=== PATIENT | female | born 1955 | race Caucasian/White ===

== ENCOUNTER 2020-07-02 05:18 | Inpatient (IN) | payer MEDICARE, SELFPAY ==
[2020-07-02] VITALS (67 sets, daily range): BP systolic 97–133; BP diastolic 51–105; PULSE 67–135; RESP 17–41; TEMP 36.1–36.3; O2SAT 77–100; BMI 13.6
--- NOTE | ~2020-07-02 | CT_ITS ---
EXAMINATION: CTA chest PE protocol EXAM DATE: 07/02/2020 07:56 INDICATION: Shortness of breath. Right-sided pneumothorax. TECHNIQUE: Spiral CTA of the chest (pulmonary arteries) was performed with 100 cc Omnipaque 350 intr avenous contrast injection. Images were acquired during the pulmonary arterial phase. Coronal maxi mum intensity projection 3D-reconstructions were created by the technologist on dedicated workstation . Axial, coronal and sagittal reformatted images were reviewed. The dose-length product (DLP) for t his examination was 152.46 mGy-cm. The exposure was tailored according to patient size (auto mA exp osure control), and iterative reconstruction (ASIR) was used as additional dose reduction technique. Comparison is made to prior examination from 11/22/2017. FINDINGS: Pulmonary arteries are well opacified and without intraluminal filling defects. No ascen ding thoracic aortic dissection. Aortic arch, descending thoracic aorta is not opacified at time of i maging. There is a small to moderate-sized right-sided pneumothorax. There is severe chronic hyperinflation a nd emphysema. There is right basilar and medial bullous disease. Right upper lobe scarring is unchang ed as well as several other nodular opacities. There are regions of bronchiectasis. No evidence of ac [place] airspace disease. There are no pleural or pericardial effusions. Tracheobronchial tree is paten t. There is no mediastinal, hilar or axillary lymphadenopathy. Narrow cardiac silhouette from the hyperinflated lungs. There is mild coronary arterial calcification, arterial sclerosis. Upper abdo men is unremarkable. There is thoracic spondylosis without osteoblastic or osteolytic lesions ident ified. IMPRESSION: 1. Small to moderate-sized right-sided pneumothorax. 2. No pulmonary emboli or acute airspace disease. 3. Severe emphysema and hyperinflation. Bronchiectasis. 4. Apical predominant scarring. Finding of right pneumothorax was already verbally conveyed to Dr. Garcia as per documentation on [facility] t x-ray report. Reviewed, dictated and finalized at location B. WEB DEVELOPER IMPRESSION: 1. Small to moderate-sized right-sided pneumothorax. 2. No pulmonary emboli or acute airspace disease. 3. Severe emphysema and hyperinflation. Bronchiectasis. 4. Apical predominant scarring. Finding of right pneumothorax was already verbally conveyed to Dr. Garcia as per documentation on chest x-ray report.
--- NOTE | ~2020-07-02 | XR_ITS ---
EXAMINATION: XR chest 1V portable DATE: 07/04/2020 11:58 INDICATION: Right pneumothorax. TECHNIQUE: A single frontal view of the chest was obtained. COMPARISON: Chest single view 07/03/2020, chest CT 07/02/20 FINDINGS: The patient is rotated to her left. The lungs are hyperexpanded with lucencies, consistent with emphysema. There is scarring at the lung apices. There are airspace opacities at the lung bases. There are small pleural effusions. There is a small right pneumothorax. The heart size is normal. IMPRESSION: 1. Small right pneumothorax. 2. Small pleural effusions with worsening on the left. 3. Severe emphysema. 4. Scarring at the lung apices. Worsened airspace opacities at the lung bases, likely atelectasis and scarring. Reviewed, dictated and finalized at location A. ING COURT JUDGE
--- NOTE | ~2020-07-02 | XR_ITS ---
XR chest 1V portable DATE: 07/02/2020 05:53 INDICATION: Shortness of breath. Chest pressure. TECHNIQUE: Portable upright AP chest on July 02, 2020 at 0554 hours COMPARISON: 11/22/2017 CT chest abdomen pelvis 10/12/2017 two-view chest FINDINGS: Bullous emphysema is noted. There is bilateral apical scarring, right worse than left. There is approximately 25% right pneumothorax. No left pneumothorax. No pulmonary infiltrate or consolidation. Normal heart size. Aortic calcification. Diffuse osteopenia. IMPRESSION: Right pneumothorax COPD; bilateral apical scarring Aortic atherosclerosis On July 02, [address] Maria telephoned the report to emergency room physician Dr. Julito webber. Reviewed, dictated and finalized at location A. L WORKER IMPRESSION: Right pneumothorax COPD; bilateral apical scarring Aortic atherosclerosis On July 02, [address] Maria telephoned the report to emergency r oom physician Dr. Garcia.
--- NOTE | ~2020-07-02 | XR_ITS ---
EXAMINATION: XR chest 1V portable DATE: 07/05/2020 05:44 INDICATION: Right pneumothorax. TECHNIQUE: A single frontal view of the chest was obtained on 2 radiographs. COMPARISON: Chest single view 07/04/2020 FINDINGS: The patient is rotated to her left. The lungs are hyperinflated with lucencies, consistent with emphysema. There is scarring at the lung apices. There are small pleural effusions. There is a s mall right apical pneumothorax. There are mild airspace opacities at the lung bases, likely atelectas is and scarring. The heart size is normal. IMPRESSION: 1. Small right apical pneumothorax. 2. Stable small pleural effusions. 3. Severe emphysema. 4. Scarring at the lung apices. Stable atelectasis and scarring at the lung bases. Reviewed, dictated and finalized at location A. ORM MAKER IMPRESSION: 1. Small right apical pneumothorax. 2. Stable small pleural effusions. 3. Severe emphysema. 4. Scarring at the lung apices. Stable atelectasis and scarring at the lung bas es.
--- NOTE | ~2020-07-02 | XR_ITS ---
EXAMINATION: XR chest-chest tube insert/pos EXAM DATE: 07/02/2020 09:38 INDICATION: Chest tube insertion. TECHNIQUE: Portable AP frontal chest x-ray was obtained. Comparison is made to prior examination from 07/02/2020. FINDINGS: Interval insertion of right-sided chest tube with interval resolution of pneumothorax. Ther e is severe chronic hyperinflation. Biapical scarring. No evidence of acute airspace disease. There i s aortic arteriosclerosis. The bones are osteopenic. There are bony degenerative changes. IMPRESSION: 1. Resolution of pneumothorax following right-sided chest tube insertion. 2. Severe chronic hyperinflation. Reviewed, dictated and finalized at location B. STRAIGHTENER
--- NOTE | ~2020-07-02 | XR_ITS ---
XR chest 1V portable DATE: 07/03/2020 11:25 INDICATION: Chest tube clamped; patient started having shortness of breath. Recent right pneumothorax . TECHNIQUE: Portable upright AP chest on July 03, 2020 at 1116 hours COMPARISON: July 03, 2020 portable AP chest at 0521 hours FINDINGS: Right thoracostomy tube is again noted. No pneumothorax is evident following clamping. Bilateral hyperinflation and flattening the diaphragm consistent with COPD. Bilateral pulmonary scarr ing involving particularly the upper lungs. IMPRESSION: No evidence of pneumothorax following clamping of right chest tube Reviewed, dictated and finalized at location A. OLATE PACKER
--- NOTE | ~2020-07-02 | XR_ITS ---
EXAMINATION: XR chest 1V portable DATE: 07/06/2020 05:58 INDICATION: Right pneumothorax. TECHNIQUE: A single frontal view of the chest was obtained. COMPARISON: Chest single view 07/05/2020 FINDINGS: The patient is rotated to her left. The lungs are hyperexpanded with lucencies, consistent with emphysema. There is scarring at the lung apices. There are small pleural effusions. There is mil d atelectasis and scarring at the lung bases. There is no pneumothorax. The heart size is normal. IMPRESSION: 1. No pneumothorax. 2. Stable small pleural effusions. 3. Severe emphysema. 4. Scarring at the lung apices. Stable scarring and atelectasis at the lung bases. Reviewed, dictated and finalized at location A. STRIAL MAINTENANCE TECH IMPRESSION: 1. No pneumothorax. 2. Stable small pleural effusions. 3. Severe emphysema. 4. Scarring at the lung apices. Stable scarring and atelectasis at the lung bas es.
--- NOTE | ~2020-07-02 | XR_ITS ---
XR chest 1V portable 07/04/2020 18:33 Indication: Increased shortness of breath Procedure: AP portable chest Comparison: Comparison to multiple prior studies sequentially, with oldest reviewed study dated 09/2020. Findings: Bibasilar airspace disease. Small pleural effusions. Chronic apical scarring. No pneumothor ax. No acute osseous abnormality. Impression: 1: Bibasilar infiltrates may represent atelectasis/scarring or pneumonia. 2: Small pleural effusions. 3: Chronic upper lobe scarring. Reviewed, dictated and finalized at location A. TURBINE MECHANICAL ENGINEER Impression: 1: Bibasilar infiltrates may represent atelectasis/scarring or pneumonia. 2: Small pleural effusions. 3: Chronic upper lobe scarring.
--- NOTE | ~2020-07-02 | XR_ITS ---
EXAMINATION: XR chest 1V portable DATE: 07/03/2020 12:42 INDICATION: Right pneumothorax status post chest tube removal. TECHNIQUE: A single frontal view of the chest was obtained. COMPARISON: Chest single view at 11:12 AM, chest CT 07/02/20 FINDINGS: The lungs are hyperexpanded with lucencies and architectural distortion, consistent with se veronica emphysema. There is mild atelectasis in right lung. There is mild scarring at the lung apices. T here is a small right pleural effusion. No pneumothorax. The heart size is normal. IMPRESSION: 1. Small right pleural effusion. 2. Severe emphysema. Reviewed, dictated and finalized at location A. EGLASS LAY UP WORKER
--- NOTE | ~2020-07-02 | XR_ITS ---
XR chest 1V portable DATE: 07/03/2020 05:35 INDICATION: Right pneumothorax TECHNIQUE: Portable AP chest on July 03, 2020 at 0521 hours COMPARISON: July 02, 2020 portable AP chest at 0934 hours FINDINGS: Right thoracostomy tube is unchanged in position since July 02, 2020. No pneumothorax is noted. Severe chronic obstructive pulmonary disease. There is asymmetric increased density overlying right apical area which may be due to scarring, infil trate and/or pulmonary mass lesion. Consider PET/CT imaging as clinically appropriate. There is left apical scarring. Heart size is within normal range. There is aortic calcification. No pleural effusion or pulmonary va scular congestion is evident. Diffuse osteopenia. IMPRESSION: Right thoracostomy tube; no pneumothorax Asymmetric increased density in the right apical area which may be due to scarring, infiltrate and/or pulmonary mass lesion. Consider elective PET/CT imaging. Reviewed, dictated and finalized at location A. STAFF IMPRESSION: Right thoracostomy tube; no pneumothorax Asymmetric increased density in the right apical area which may be due to scarr ing, infiltrate and/or pulmonary mass lesion. Consider elective PET/CT imaging.
--- NOTE | 2020-07-02 05:31 | ECG_ITS ---
Measurements Intervals [place] Rate: 91 P: IN: 0 QRS: 120 QRSD: 122 T: 74 QT: 369 QTc: 454 Interpretive Statements ATRIAL FIBRILLATION INTRAVENTRICULAR CONDUCTION DELAY CANNOT RULE OUT SEPTAL INFARCT, AGE INDETERMINATE BASELINE ARTIFACT- I, II, III, AVF, V1-V3, V6 ABNORMAL ECG Electronically Signed On 07-02-2020 7:21:22 PROCUREMENT ANALYST by Elliot Bobby D.O.
[2020-07-02 05:55] LABS: Basophils Percent Auto 0.2 % (0.2-1.2); Eosinophils Percent Auto 0.3 % (0-4.4); Hematocrit 41.6 % (37.0-47.0); Hemoglobin 13.6 g/dL (12.0-15.0); Immature Granulocyte Absolute 0.04 K/mm3 (0.00-0.031); Immature Granulocyte Percent A 0.6 % (0-0.5); Lymphocytes Absolute Auto 0.81 K/mm3 (0.9-3.2); Lymphocytes Percent Auto 12.2 % (18.3-44.2); Mean Corpuscular HGB Conc 32.7 g/dl (32-36); Mean Corpuscular Hemoglobin 33.3 pg (26-34); Mean Corpuscular Volume 101.7 fl (80-100); Mean Platelet Volume 8.9 fl (7.4-10.4); Monocytes Absolute Auto 0.7 K/mm3 (0.1-0.6); Monocytes Percent Auto 10.4 % (2.6-8.5); Neutrophils Absolute Auto 5.1 K/mm3 (1.3-6.7); Neutrophils Percent Auto 76.3 % (45.5-73.1); Platelet Count Result 237 k/mm3 (150-375); Red Blood Count 4.09 M/mm3 (4.2-5.4); Red Cell Distribution Width 11.8 % (11.5-14.5); White Blood Count 6.6 K/mm3 (4.5-10.0)
[2020-07-02] MEDS: IPRATROPIUM BR 0.02% INH SOLN 0.5 MG/2.5 ML VIAL INHALATION ×3 (05:55→20:30)
[2020-07-02] MEDS: ALBUTEROL SULFATE NEB 2.5 MG/0.5 ML INH 5 MG INHALATION ×2 (05:55→06:45)
[2020-07-02 06:06] LABS: Anion Gap 5 mmol/L (8-16); Blood Urea Nitrogen 16 mg/dL (7-17); Calcium 9.1 mg/dL (8.4-10.2); Carbon Dioxide 30 mmol/L (22-30); Chloride 100 mmol/L (98-107); Estimated CRCL calculation 55 ml/min; Estimated Glomerular Filt Rate > 60; Glucose 135 mg/dL (65-105); Potassium 4.6 mmol/L (3.4-5.0); Sodium 135 mmol/L (137-145)
[2020-07-02 06:07] LABS: INR 0.9; Prothrombin Time 12.7 Seconds (11.1-14.7)
[2020-07-02 06:09] LABS: Partial Thromboplastin Time 32.1 SECONDS (22.3-36.8)
[2020-07-02 06:10] LABS: Base Excess ABG -2.7 mEq/l (+/-2.0); Carboxyhemoglobin 0.3 % THb (0-2.0); Device NON-REBREATHER MASK; Fractional Inspired Oxygen 90 %; HCO3 ABG 23.4 mEq/l (22.0-26.0); Methemoglobin ABG 0.3 %THb (0-1.5); Oxygen Content ABG 20.4 %vol (16.0-22.0); Oxygen Saturation ABG 99.5 % (95.0-100.0); Oxyhemoglobin 98.1 % THb (90.0-100.0); PCO2 ABG 45.1 mmHg (35.0-45.0); PO2 ABG 234.5 mmHg (80.0-100.0); PO2 FiO2 Ratio Arterial Blood 2.61 %; Reduced Hemoglobin 1.3 %THb (0-5.0); Site Drawn RIGHT BRACHIAL; Total Hemoglobin 14.4 g/dL (12.0-18.0); pH ABG 7.332 (7.350-7.450)
--- NOTE | 2020-07-02 06:11 | ED.SOB ---
HPI - SOB/Dyspnea General Chief Complaint: Shortness of Breath/Dyspnea Stated Complaint: sob Time Seen by Provider: 07/02/20 05:42 Source: patient Mode of arrival: ambulatory Limitations: no limitations History of Present Illness HPI Narrative: Patient is a 64-year-old female complaining of shortness of breath, started 3 days ago worse this morning. Patient states she has a history of COPD. Per EMS her oxygen saturation room air was 80%, she does not use home oxygen. Patient was given Decadron and magnesium and a neb treatment per EMS prior to arrival. Patient also complaining of chest tightness. Patient denies any abdominal pain, nausea, vomiting, fever or chills. Related Data Allergies Allergy/AdvReac Type Severity Reaction Status Date / Time No Known Allergies Allergy Verified 07/11/12 11:09 Review of Systems Review of Systems: All systems reviewed & are unremarkable except as noted in HPI and below Constitutional: Constitutional: Denies body ache(s), Denies chills, Denies excessive sweating, Denies fatigue, Denies fever(s), Denies headache(s), Denies lethargy, Denies malaise, Denies weakness and Denies weight loss Eyes: Eyes: Denies blurry vision, Denies change in vision and Denies loss of vision ENT: Denies dizziness, Denies ear discharge, Denies headache(s), Denies lip swelling, Denies epistaxis, Denies nasal congestion, Denies neck pain, Denies throat swelling and Denies tongue swelling Cardiovascular: Cardiovascular: Denies chest pain, Denies chest pain at rest, Denies chest pain with activity, Denies diaphoresis, Denies rapid heart rate, Denies edema, Denies irregular heart rhythm, Denies lightheadedness, Denies palpitations, Denies dyspnea and Denies dyspnea on exertion Respiratory: Respiratory: Denies chest congestion and Denies hemoptysis Gastrointestinal: Gastrointestinal: Denies abdominal pain, Denies melena, Denies hematochezia, Denies diarrhea, Denies nausea, Denies vomiting and Denies hematemesis Musculoskeletal: Musculoskeletal: Denies abnormal gait, Denies deformity, Denies joint swelling, Denies limited range of motion, Denies neck pain and Denies numbness Neurologic: Denies Abnormal speech present, Denies abnormal gait, Denies confusion, Denies dizziness, Denies headache(s), Denies focal weakness, Denies loss of vision, Denies numbness, Denies Other visual disturbances, Denies Sensory deficit (Neuro) and Denies weakness Psychiatric: Psychiatric: Denies confusion, Denies depression, Denies auditory hallucinations, Denies homicidal ideation and Denies suicidal ideation Endocrine: Endocrine: Denies cold intolerance, Denies excessive sweating, Denies fatigue, Denies heat intolerance and Denies palpitations Hematologic/Lymphatic: Hematologic/Lymphatic: Denies easy bleeding and Denies easy bruising Allergic/Immunologic: Allergic/Immunologic: Denies lip swelling, Denies throat swelling and Denies tongue swelling PMFSH Family History Family History Other Diabetes mellitus Family history of Alzheimer's disease Family history of cardiovascular disease Family history of kidney disease Social History Social History Smoking status: Never smoker Second hand tobacco smoke exposure: Yes Smoking end date: 05/29/12 Alcohol intake: never Exam Const: General: no acute distress (Severe distress) Orientation/consciousness: oriented to person, oriented to place, oriented to time, patient oriented x3 and No confusion Limitations: no limitations HENMT: Head: normal to inspection, normocephalic and atraumatic Ears: hearing grossly normal bilaterally, TM normal on the right and TM normal on the left General nose exam: Normal external nose present, Normal nares present and No nasal discharge present Face and sinus: normal facial exam Mouth: Yes Normal oral and palatal mucosa present, Yes lip normal, Ye
--- NOTE | 2020-07-02 06:34 | PC.NURSE ---
Patient reports she woke up and noticed the nebulizer treatment was not connected to her mask. Patient believes no medication was administered and still has an increased work of breathing. JOSÉ MIGUEL Hernadez notified. Per JOSÉ MIGUEL Hernadez via verbal order read-back, order another nebulizer treatment.
[2020-07-02 06:43] LABS: D Dimer 0.81 ug/mL (<0.48)
--- NOTE | 2020-07-02 07:22 | PC.NURSE ---
Assumed pt care at this time from RN Song, pt on Bipap, tolerating well, VSS, NAD noted, will continue to monitor.
--- NOTE | 2020-07-02 07:24 | PC.NURSE ---
Per respiratory pt to go down to CT on 5L via NC.
--- NOTE | 2020-07-02 07:26 | PC.NURSE ---
Verbal order from BRYCE barrett to repeat ABG, if abg is improved pt to be removed from Bipap and placed on non-rebreather.
--- NOTE | 2020-07-02 07:30 | PC.NURSE ---
Pt to CT on monitor and 5L via NC at this time.
--- NOTE | 2020-07-02 08:04 | PC.NURSE ---
Pt informed consent signed for Right sided chest tube insertion, all resources at bedside, pt on 5L via NC, resting on stretcher, VSS.
--- NOTE | 2020-07-02 08:17 | PC.NURSE ---
Spoke with BRYCE Garcia about pt pain control for chest tube insertion, verbal order given for 2mg morphine and 4mg zofran ivp stat, bryce states that if pt tolerates 1st dose of morphine, she can have 2nd dose of 2mg morphine ivp
[2020-07-02] MEDS: MORPHINE SULFATE (*CRX) 2 MG/ML INJ IV PUSH ×2 (08:41→09:18)
[2020-07-02] MEDS: ONDANSETRON INJ 4 MG/2 ML VIAL (08:41)
--- NOTE | 2020-07-02 08:45 | PC.NURSE ---
Nilton العراقي at bedside drawing 3hr troponin.
--- NOTE | 2020-07-02 08:48 | PC.NURSE ---
Pt updated that we are awaiting provider for chest tube placement. Pt verbalized understanding, no concerns or questions at this time, vss.
--- NOTE | 2020-07-02 09:05 | PC.NURSE ---
JOSÉ MIGUEL DOMINGUEZ AT BEDSIDE FOR RIGHT SIDED CHEST TUBE INSERTION. PT INFORMED CONSENT SIGNED PRIOR TO START TIMEOUT COMPLETE VSS
[2020-07-02] MEDS: LACTATED RINGERS 1,000 ML 250 ML IV CONT (09:14)
--- NOTE | 2020-07-02 09:25 | PC.NURSE ---
R SIDED CHEST TUBE IN SECURED IN PLACE AT THIS TIME, RADIOLOGY CONTACTED FOR REPEAT CHEST XRAY. PT TOLERATED PROCEDURE WELL.
[2020-07-02 09:37] LABS: Troponin I 0.981 ng/mL (0.000-0.034)
--- NOTE | 2020-07-02 10:13 | ED.SOB ---
HPI - SOB/Dyspnea General Chief Complaint: Shortness of Breath/Dyspnea Stated Complaint: sob Time Seen by Provider: 07/02/20 05:42 Source: patient Mode of arrival: ambulatory Limitations: no limitations Related Data Home Medications Medication Instructions Recorded Confirmed albuterol sulfate 0.63 mg INHALATION Q4H PRN 07/02/20 cholecalciferol (vitamin D3) 10 mcg PO DAILY 07/02/20 [Vitamin D3] potassium mg PO 07/02/20 vitamin B39-cfxow acid 1 tablet PO DAILY 07/02/20 Allergies Allergy/AdvReac Type Severity Reaction Status Date / Time No Known Allergies Allergy Verified 07/11/12 11:09 [facility] Family History Family History Other Diabetes mellitus Family history of Alzheimer's disease Family history of cardiovascular disease Family history of kidney disease Social History Social History Smoking status: Never smoker Second hand tobacco smoke exposure: Yes Smoking end date: 05/29/12 Alcohol intake: never Course Reevaluation(s) Reevaluation #1: Patient was signed to me at shift change, 7 AM, Dr. Hernadez. With a diagnosis of exacerbation of COPD, waiting for CT to rule out pulmonary embolism. Chest x-ray showed 25% right pneumothorax Chest tube was placed by me, Patient will be admitted to hospitalist, Dr. Hodges consulted for chest tube management. Patient laying down in bed, comfortable, I could not add my note to Dr. Henradez chart. Date: 07/02/20 Time: 10:18 Consultations Consultation #1: Dr. Hodges Date: 07/02/20 Time: 10:22 Vital Signs Vital signs: Vital Signs Temperature 36.3 C L 07/02/20 05:20 Pulse Rate 94 07/02/20 05:20 Respiratory Rate 30 H 07/02/20 05:20 Blood Pressure 124/65 07/02/20 05:20 Pulse Oximetry 99 07/02/20 05:20 Temperature 36.3 C L 07/02/20 05:20 Pulse Rate 105 H 07/02/20 10:16 Respiratory Rate 35 H 07/02/20 10:16 Blood Pressure 107/54 L 07/02/20 10:16 Pulse Oximetry 100 07/02/20 10:16 Procedures Chest Tube Chest Tube 1: Chest Tube Date: 07/02/20 Chest Tube Time: 10:14 Chest Tube Location: right and fifth interspace Tube Type: quik thal Chest Tube Prep: Yes betadine prep and sterile drapes applied Anesthetic: lidocaine 1% and with epi Amount of anesthesia used (mL): 10 Incision Made With: #11 blade Procedure: sterile prep/drape Post Procedure: sutured to skin, sterile dressing applied and connected to Pluero Vac Tube Drainage: mcguire of air Post Procedure CXR?: Yes Post Procedure: placement appropriate and pneumo resolved Patient Tolerated Procedure: Yes MDM - SOB/Dyspnea Lab Data Result diagrams: 07/02/20 05:44 07/02/20 05:44 Labs: Lab Results 07/02/20 07/02/20 07/02/20 Range/Units 05:44 05:44 05:44 WBC 6.6 (4.5-10.0) K/mm3 RBC 4.09 L (4.2-5.4) M/mm3 Hgb 13.6 (12.0-15.0) g/dL Hct 41.6 (37.0-47.0) % MCV 101.7 H (80-100) fl MCH 33.3 (26-34) pg MCHC 32.7 (32-36) g/dl RDW 11.8 (11.5-14.5) % Plt Count 237 (150-375) k/mm3 MPV 8.9 (7.4-10.4) fl Immature Gran % (Auto) 0.6 H (0-0.5) % Neut % (Auto) 76.3 H (45.5-73.1) % Lymph % (Auto) 12.2 L (18.3-44.2) % Bonner % (Auto) 10.4 H (2.6-8.5) % Eos % (Auto) 0.3 (0-4.4) % Baso % (Auto) 0.2 (0.2-1.2) % Lymph # (Auto) 0.81 L (0.9-3.2) K/mm3 Bonner # (Auto) 0.7 H (0.1-0.6) K/mm3 Eos # (Auto) 0.0 (0-0.3) K/mm3 Baso # (Auto) 0.0 (0.0-0.1) K/mm3 Abs Immat Gran (auto) 0.04 H (0.00-0.031) K/mm3 Absolute Neuts (auto) 5.1 (1.3-6.7) K/mm3 Absolute Nucleated RBC 0.0 (0.0-0.012) K/mm3 Nucleated RBC % 0.0 (0.0-0.2) % PT 12.7 (11.1-14.7) Seconds INR 0.9 APTT 32.1 (22.3-36.8) SECONDS D-Dimer 0.81 H (<0.48) ug/mL Methemoglobin (0-1.5) %
[2020-07-02] MEDS: ASPIRIN 325 MG TABLET PO (10:30)
--- NOTE | 2020-07-02 12:00 | PM.CNGS ---
Assessment and Plan Assessment and plan (1) Pneumothorax on right: Code(s): J93.9 - Pneumothorax, unspecified Status: Acute Assessment and Plan: s/p CT placement c resolution, will recheck CXR in am, cont CT to sxn at this time (2) Acute exacerbation of chronic obstructive pulmonary disease: Code(s): J44.1 - Chronic obstructive pulmonary disease with (acute) exacerbation Status: Acute Assessment and Plan: mgmt per primary team, supplement O2 as needed History of Present Illness Consult details Consult date: 07/02/20 Reason for consult: chest tube Requesting physician: Mona Garcia MD Narrative: Pt is a 64 y/o F c h/o COPD presenting for worsening SOB and chest tightness over last few days. Pt reports she normally has some SOB c activity but she became worried as this was happening at rest. Pt called EMS and was found to have O2 sat around 80. Pt is not on oxygen at home. Pt found to have R PTX on imaging in ED and is s/p CT placement. Pt reports she feels much improved after tube placement. Review of Systems Constitutional: Constitutional: Denies anorexia, Denies chills, Denies fatigue, Denies headache(s), Denies lethargy, Denies malaise, Denies poor appetite, Denies weakness, Denies weight gain and Denies weight loss Eyes: Eyes: Reports no additional eye complaints ENT: Reports system reviewed and no additional complaints, except as documented Cardiovascular: Cardiovascular: Reports chest pain, Denies edema, Reports dyspnea on exertion and Reports orthopnea Respiratory: Respiratory: Reports as per HPI and Reports no additional respiratory complaints Gastrointestinal: Gastrointestinal: Reports no additional gastrointestinal complaints Genitourinary: Genitourinary: Reports no additional female genitourinary complaints Musculoskeletal: Musculoskeletal: Reports no additional musculoskeletal complaints Integumentary/Breasts: Skin/Breast: Reports system reviewed and no additional complaints, except as docu Neurologic: Reports system reviewed and no additional complaints, except as documented Psychiatric: Psychiatric: Reports no additional psychiatric complaints Endocrine: Endocrine: Reports no additional endocrine complaints Hematologic/Lymphatic: Hematologic/Lymphatic: Reports no additional hematologic/lymphatic complaints Allergic/Immunologic: Allergic/Immunologic: Reports no additional allergic/immunologic complaints [facility] Family History Family History Other Diabetes mellitus Family history of Alzheimer's disease Family history of cardiovascular disease Family history of kidney disease Social History Social History Smoking status: Never smoker Second hand tobacco smoke exposure: Yes Smoking end date: 05/29/12 Alcohol intake: never Comments PMH - COPD PSxH- denies any chest surgeries Meds Home Medications and Allergies Home Medications Medication Instructions Recorded Confirmed Type albuterol sulfate 0.63 mg INHALATION Q4H PRN 07/02/20 History cholecalciferol (vitamin D3) 10 mcg PO DAILY 07/02/20 History [Vitamin D3] potassium mg PO 07/02/20 History vitamin G91-iqisi acid 1 tablet PO DAILY 07/02/20 History Allergies Allergy/AdvReac Type Severity Reaction Status Date / Time No Known Allergies Allergy Verified 07/11/12 11:09 Vital Signs Vital Signs - 24 hr 07/02/20 05:20 07/02/20 05:29 07/02/20 05:30 Temperature 36.3 C L Pulse Rate 94 96 95 Respiratory Rate 30 H 29 H 26 H Blood Pressure 124/65 Pulse Oximetry 99 100 100 07/02/20 05:31 07/02/20 05:32 07/02/20 05:45 Temperature Pulse Rate 93 104 H 100 Respiratory Rate 31 H 28 H Blood Pressure 133/68 Pulse Oximetry 100 94 100 07/02/20 06:00 07/02/20 06:01 07/02/20 06:05 Temperature Pulse Rate 104 H 100 104 H Respiratory Rate 28 H 26 H 30 H B
--- NOTE | 2020-07-02 15:08 | ADMGEN ---
This patient, Sugar Carter, was admitted to IMU Room 202-01 at 1438. Patient/family oriented to hospital policies and general routines including ID bracelet, bed and alarms, visiting hours, pain management, procedures, bathroom and other care routines, personal items, smoking policy, room service/diet, and visiting hours. Information on how to activate the Rapid Response Team has been discussed. Patient/Family are encouraged to report perceived risks to care and to ask questions if they do not understand what they are told or what they should do.
[2020-07-02] MEDS: ACETAMINOPHEN 325 MG TABLET 650 MG PO (15:15)
--- NOTE | 2020-07-02 15:43 | PM.IMHP ---
H&P: HPI History of Present Illness Date/Time: 07/02/20 15:43 Chief Complaint: Shortness of breath Narrative: Sugar Carter is a 64 year old female with long history of smoking and has not seen a primary care physician in a long time and does not have a paid internship, patient presented emergency department with a complaint shortness of breath patient states at baseline she is short of breath with exertion however her symptoms were progressive getting worse EMS was called and patient was desaturating 80% on room air, patient was placed on non-rebreather mask a brought to the emergency depart, patient had CTA of the chest did not show pulmonary emboli but patient did have a small to moderate size pneumothorax on right side, chest tube was placed in the emergency department and currently on suction, seen by surgery team plan is to continue the chest tube, repeat a chest x-ray in the morning further recommendation to follow, will consult paid internship for further recommendation. Patient with history of hyperlipidemia patient states at 1 time she was prescribed statin but did not take it. Review of Systems Review of Systems: All systems reviewed & are unremarkable except as noted in HPI and below PMFSH Family History Family History Other Diabetes mellitus Family history of Alzheimer's disease Family history of cardiovascular disease Family history of kidney disease Social History Social History Smoking status: Former smoker Second hand tobacco smoke exposure: Yes Smoking end date: 06/19/20 Alcohol intake: never Substance use: never Gender identity (if verbalized by the patient): Female Spiritual care concerns: No Meds Home Medications and Allergies Home Medications Medication Instructions Recorded Confirmed Type albuterol sulfate 0.63 mg INHALATION Q4H PRN 07/02/20 History cholecalciferol (vitamin D3) 10 mcg PO DAILY 07/02/20 History [Vitamin D3] potassium 20 mg PO DAILY 07/02/20 07/02/20 History vitamin H40-xggxz acid 1 tablet PO DAILY 07/02/20 History Allergies Allergy/AdvReac Type Severity Reaction Status Date / Time No Known Allergies Allergy Verified 07/11/12 11:09 Vital Signs Vital Signs - 24 hr 07/02/20 05:20 07/02/20 05:29 07/02/20 05:30 Temperature 97.3 F L Pulse Rate 94 96 95 Respiratory Rate 30 H 29 H 26 H Blood Pressure 124/65 Pulse Oximetry 99 100 100 07/02/20 05:31 07/02/20 05:32 07/02/20 05:45 Temperature Pulse Rate 93 104 H 100 Respiratory Rate 31 H 28 H Blood Pressure 133/68 Pulse Oximetry 100 94 100 07/02/20 06:00 07/02/20 06:01 07/02/20 06:05 Temperature Pulse Rate 104 H 100 104 H Respiratory Rate 28 H 26 H 30 H Blood Pressure 125/62 Pulse Oximetry 100 100 07/02/20 06:15 07/02/20 06:30 07/02/20 06:31 Temperature Pulse Rate 120 H 108 H 111 H Respiratory Rate 24 H 40 H 19 Blood Pressure 118/98 H Pulse Oximetry 100 100 99 07/02/20 06:40 07/02/20 06:47 07/02/20 06:50 Temperature Pulse Rate 115 H 118 H 115 H Respiratory Rate 27 H 41 H 38 H Blood Pressure Pulse Oximetry 97 07/02/20 07:01 07/02/20 07:15 07/02/20 07:49 Temperature Pulse Rate 107 H 108 H 117 H Respiratory Rate 25 H 26 H 18 Blood Pressure 126/70 Pulse Oximetry 100 77 L 07/02/20 07:55 07/02/20 08:00 07/02/20 08:01 Temperature Pulse Rate 127 H 122 H 117 H Respiratory Rate 17 25 H 33 H Blood Pressure 111/65 110/83 Pulse Oximetry 91 100 07/02/20 08:11 07/02/20 08:15 07/02/20 08:34 Temperature Pulse Rate 125 H 122 H 124 H Respiratory Rate 28 H 25 H 26 H Blood Pressure 110/83 116/51 L Pulse Oximetry 92 95 95 07/02/20 08:45 07/02/20 09:00 07/02/20 09:10 Temperature Pulse Rate 135 H 113 H 132 H Respiratory Rate 30 H 29 H 27 H Blood Pressure 122/77 Pulse Oximetry 96 96 07/02/20 09:14 07/02/20
--- NOTE | 2020-07-02 16:19 | PM.CNPUL ---
Assessment and Plan Assessment and plan (1) COPD (chronic obstructive pulmonary disease): Code(s): J44.9 - Chronic obstructive pulmonary disease, unspecified Status: Acute Assessment and Plan: patient with a history of tobacco use and severe emphysema noted on a CT scan from 10 years ago. Currently patient has severe panlobular emphysema on her CT scan of the chest and right pneumothorax which is resolved after chest tube placement. Currently patient denies any wheezing, fever, chills, change in sputum, hemoptysis. I do not believe she has a COPD exacerbation or pneumonia at this time. Patient states that her nebulizers have helped her in the past and I will initiate albuterol and ipratropium nebulizers Q 6 hours while awake. I do not see a need for systemic or inhaled corticosteroids at this time. I do not see a need for antibiotics at this time. Will follow with you. (2) Pneumothorax on right: Code(s): J93.9 - Pneumothorax, unspecified Status: Acute Assessment and Plan: Patient with a secondary pneumothorax from her panlobular emphysema. Etiology of the pneumothorax is likely a ruptured subpleural bleb. patient would benefit from a definitive procedure so as to prevent further pneumothoraces. Currently there is no air leak on 20 cm water pressure. Agree with supplemental oxygen at this time. General surgery has been consulted to manage her chest tube. History of Present Illness History of Present Illness Consult date: 07/02/20 Requesting physician: David Mariee MD Reason for consult: COPD Chief complaint: COPD/ PNEUMOTHORAX Narrative: This is a 64-year-old woman with a history of anal cancer in 2015 status post chemotherapy and radiation. Patient states that she has had no recurrence but needs a follow-up colonoscopy. Patient has a history of COPD diagnosed approximately 10 years ago and she has been on and off of inhalers only for the last 1.5 years. Patient was in her usual state of health on 10/17/2020 when she developed shortness of breath chest pressure and right-sided chest pain. Symptoms persisted and on to 3 packs [place] called EMT who said that her vital signs were stable and she then went to urgent care who performed a chest x-ray and said there was no pneumonia and gave her prednisone and inhaler for a COPD exacerbation. Symptoms persisted and patient presented to the emergency room at [facility] on 07/02 and the patient was found to have a large right pneumothorax. Arterial blood gas on 10 L non-rebreather was 7.33/45/234. Patient had a chest tube placed and she states that automatically she felt completely better. Patient has never had a previous pneumothorax. I was consulted to leave recommendations regarding her COPD. General surgery is consulted to manage her chest tube. Patient had a CT scan on 11/03/2009 and the report says severe emphysema. Patient was exposed to secondhand tobacco smoke from her father in childhood. Patient started smoking cigarettes at age 15 and has smoked 1 pack per day on average throughout her life. She has recently quit on 06/04/2020. Patient denies smoking marijuana, vaping, or other illicit drug use. 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 Patient intermittently takes albuterol nebulizers p.r.n.. She takes anywhere from 0-2 nebulizers a day. Patient has baseline dyspnea on exertion that has been getting worse recently and currently is at 50 ft she does not get short of breath when dressing or on dressing but is mMRC grade 3. Patient is comfortable with a right-sided chest tube in place there is no air leak. Patient is on 2 L nasal cannula with saturations 94%. Review of Systems Review of Systems: All systems reviewed & are unremarkable except as noted in HPI and below Eyes: Eyes: Reports no additional eye complaints ENT: Reports system reviewed and no ad
[2020-07-02] MEDS: ALBUTEROL SULFATE NEB 2.5 MG/0.5 ML INH INHALATION (20:30)
--- NOTE | 2020-07-02 20:54 | ECG_ITS ---
Measurements Intervals [place] Rate: 87 P: 89 ID: 115 QRS: 141 QRSD: 104 T: 231 QT: 384 QTc: 464 Interpretive Statements SINUS RHYTHM WITH SHORT ID INTERVAL RIGHT AXIS DEVIATION BORDERLINE R WAVE PROGRESSION, ANTERIOR LEADS ST-T WAVE ABNORMALITY IN ANTEROLATERAL LEADS- CONSIDER ISCHEMIA BASELINE ARTIFACT- I, II, III, AVR, AVL, AVF, V4-V5 ABNORMAL ECG Electronically Signed On 07-03-2020 7:10:00 MANAGER ENGINE by Elliot Bobby D.O.
--- NOTE | 2020-07-02 22:49 | ECG_ITS ---
Measurements Intervals [place] Rate: 87 P: -29 RI: 115 QRS: 252 QRSD: 93 T: 173 QT: 374 QTc: 451 Interpretive Statements SINUS RHYTHM WITH SHORT RI INTERVAL RIGHT AXIS DEVIATION BORDERLINE R WAVE PROGRESSION, ANTERIOR LEADS ST-T WAVE ABNORMALITY IN ANTEROLATERAL LEADS- CONSIDER ISCHEMIA BASELINE ARTIFACT- I, III, AVR, AVL, AVF ABNORMAL ECG Electronically Signed On 07-03-2020 7:13:07 ARTIFICIAL FLY TIER by Elliot Bobby D.O.
[2020-07-03] VITALS (26 sets, daily range): BP systolic 95–116; BP diastolic 51–76; PULSE 80–125; RESP 12–28; TEMP 36–36.7; O2SAT 92–99; BMI 14.1
--- NOTE | 2020-07-03 | ECHO_ITS ---
Patient Info Name: Sugar Carter Age: 64 years : 1955 Gender: Female Ht: 67 in Wt: 91 lbs BSA: 1.37 m2 HR: 105 bpm BP: 116 / 72 mmHg Heart Rhythm: Tachycardia, Sinus Rhythm Technical Quality: Good Exam Date: 07/03/2020 10:41 AM Exam Location: [facility] Patient Status: Inpatient Admit Date: 07/02/2020 Staff Ordering Physician: David Mariee MD Facility Supervisor: Filippo Aldrich RDCS Attending Provider: David Mariee MD Exam Type: CA echo doppler color flow Study Info Indications R06.02 - Shortness of breath Complete two-dimensional, color flow and Doppler transthoracic echocardiogram is performed. Strain analysis performed. History/Risk Factors COPD w/ pneumothorax; elevated trops, SOB, acute respiratory failure. Summary 1. Complete two-dimensional, color flow and Doppler transthoracic echocardiogram is performed. 2. Left ventricular systolic function is severely reduced, estimated at 30% with dyskinetic apex, akinetic apical septal, apical lateral, apical anterior, mid anterior, anteroseptal, and anterolateral swartz with relative sparing at the bases. Findings are suggestive of Takotsubo cardiomyopathy vs multivessel CAD. Clinical correlation advised.. 3. There is mildly increased left ventricular wall thickness. 4. The left ventricular diastolic function is grade I diastolic dysfunction. 5. There is mild aortic valve stenosis with a peak velocity of 111 cm/s, mean gradient of 2 mmHg, and aortic valve area of 1.6 cm2, although findings likely due low cardiac output. 6. There is trace aortic valve regurgitation. 7. There is mild mitral valve regurgitation. 8. There is mild to moderate tricuspid valve regurgitation. 9. Moderate pulmonary hypertension, estimated pulmonary arterial systolic pressure is 57 mmHg. 10. Dilated inferior vena cava with <50% collapse upon inspiration consistent with elevated right atrial pressure, 10 mmHg. 11. There is a small pericardial effusion anteriorly with small amount of fibrinous material within the pericardial space. Left Ventricle Left ventricular chamber dimension is normal. Left ventricular systolic function is severely reduced, estimated at 30% with dyskinetic apex, akinetic apical septal, apical lateral, apical anterior, mid anterior, anteroseptal, and anterolateral swartz with relative sparing at the bases. Findings are suggestive of Takotsubo cardiomyopathy vs multivessel CAD. Clinical correlation advised.. There is mildly increased left ventricular wall thickness. The left ventricular diastolic function is grade I diastolic dysfunction. Global longitudinal strain is severely elevated at -7 %. Right Ventricle Right ventricular chamber dimension is normal. Right ventricular systolic function is normal. Left Atria Left atrial chamber dimension is normal. Right Atria Right atrial chamber dimension is normal. Aortic Valve The aortic valve is probable trileaflet. There is mild aortic valve sclerosis. There is mild aortic valve stenosis with a peak velocity of 111 cm/s, mean gradient of 2 mmHg, and aortic valve area of 1.6 cm2, although findings likely due low cardiac output. There is trace aortic valve regurgitation. Pulmonic Valve The pulmonic valve is not well visualized. There is no pulmonic regurgitation. Mitral Valve The mitral valve has normal leaflets. There is mild mitral valve regurgitation. The mitral valve annulus is mildly calcified. Tricuspid Valve The tricuspid valve leaflets are normal. There is
[2020-07-03] MEDS: MORPHINE SULFATE (*CRX) 2 MG/ML INJ IV PUSH ×3 (02:21→11:59)
[2020-07-03 05:05] LABS: Alanine Aminotransferase 45 U/L (4-35); Albumin Level 3.4 g/dL (3.5-5.1); Alkaline Phosphatase 86 U/L (38-126); Anion Gap 4 mmol/L (8-16); Aspartate Amino Transferase 55 U/L (14-36); Bilirubin,Total 0.4 mg/dL (0.2-1.3); Blood Urea Nitrogen 19 mg/dL (7-17); Calcium 8.4 mg/dL (8.4-10.2); Carbon Dioxide 29 mmol/L (22-30); Chloride 98 mmol/L (98-107); Cholesterol 144 mg/dL (0-200); Estimated CRCL calculation 40 ml/min; Estimated Glomerular Filt Rate > 60; Glucose 123 mg/dL (65-105); HDL Direct 49 mg/dL; Magnesium 1.9 mg/dL (1.6-2.3); Potassium 4.8 mmol/L (3.4-5.0); Sodium 131 mmol/L (137-145); Triglycerides 121 mg/dL (<150)
[2020-07-03 05:15] LABS: LDL Cholesterol Direct 69 mg/dL
[2020-07-03] MEDS: ACETAMINOPHEN 325 MG TABLET 650 MG PO (06:03)
[2020-07-03] MEDS: ALBUTEROL SULFATE NEB 2.5 MG/0.5 ML INH INHALATION ×3 (07:55→17:39)
[2020-07-03] MEDS: IPRATROPIUM BR 0.02% INH SOLN 0.5 MG/2.5 ML VIAL INHALATION ×3 (07:55→17:39)
[2020-07-03 08:46] LABS: Hematocrit 36.7 % (37.0-47.0); Mean Corpuscular HGB Conc 32.7 g/dl (32-36); Mean Corpuscular Hemoglobin 33.4 pg (26-34); Mean Corpuscular Volume 102.2 fl (80-100); Mean Platelet Volume 9.6 fl (7.4-10.4); Platelet Count Result 217 k/mm3 (150-375); Red Blood Count 3.59 M/mm3 (4.2-5.4); Red Cell Distribution Width 11.9 % (11.5-14.5); White Blood Count 11.1 K/mm3 (4.5-10.0)
--- NOTE | 2020-07-03 09:31 | PM.PNGS ---
Progress Note: A&P Assessment and Plan (1) Pneumothorax on right: Code(s): J93.9 - Pneumothorax, unspecified Status: Acute Assessment and Plan: place to seal and check CXR in a few hours, if no recurrent PTX will dc CT (2) Acute exacerbation of chronic obstructive pulmonary disease: Code(s): J44.1 - Chronic obstructive pulmonary disease with (acute) exacerbation Status: Acute Assessment and Plan: stable, supplement O2 as needed, mgmt per primary team Subjective Subjective Date/Time Seen: 07/03/20 09:31 no acute issues overnight, c/o pain at CT insertion site Review of Systems Review of Systems: All systems reviewed & are unremarkable except as noted in HPI and below Exam Const: General: cooperative, acute distress mild and ill appearing Nutritional Appearance: thin Orientation/consciousness: patient oriented x3 Limitations: no limitations Chest: Other: R CT - C/D/I, no leak Resp: Effort & Inspection: normal respiratory effort Auscultation: diminished lung sounds Cardio: Rate: regular rate Rhythm: regular rhythm GI: Inspection: normal to inspection GI Palp: Yes Soft to palpation and No Tenderness to palpation present (GI) Objective Data Vital Signs Vital Signs: Vital Signs - 24 hr 07/02/20 09:36 07/02/20 09:38 07/02/20 09:41 Temperature Pulse Rate 126 H 111 H 104 H Respiratory Rate 32 H 31 H 32 H Blood Pressure 122/105 H 111/66 103/56 L Pulse Oximetry 99 99 100 07/02/20 09:42 07/02/20 09:45 07/02/20 09:56 Temperature Pulse Rate 103 H 104 H 104 H Respiratory Rate 31 H 23 H 28 H Blood Pressure 103/73 Pulse Oximetry 100 99 07/02/20 10:00 07/02/20 10:01 07/02/20 10:15 Temperature Pulse Rate 110 H 105 H 104 H Respiratory Rate 28 H 25 H 30 H Blood Pressure 113/71 Pulse Oximetry 100 100 100 07/02/20 10:16 07/02/20 10:17 07/02/20 10:30 Temperature Pulse Rate 105 H 105 H 105 H Respiratory Rate 35 H 25 H 27 H Blood Pressure 107/54 L Pulse Oximetry 100 99 100 07/02/20 10:44 07/02/20 10:45 07/02/20 10:46 Temperature Pulse Rate 105 H 104 H 104 H Respiratory Rate 27 H 24 H 27 H Blood Pressure 103/60 106/66 Pulse Oximetry 99 99 99 07/02/20 10:47 07/02/20 11:00 07/02/20 11:01 Temperature Pulse Rate 104 H 102 H 108 H Respiratory Rate 22 H 25 H 24 H Blood Pressure 97/63 L Pulse Oximetry 100 99 99 07/02/20 11:15 07/02/20 11:16 07/02/20 11:30 Temperature Pulse Rate 105 H 103 H 108 H Respiratory Rate 24 H 30 H 24 H Blood Pressure 108/55 L Pulse Oximetry 96 97 07/02/20 11:31 07/02/20 11:45 07/02/20 11:46 Temperature Pulse Rate 104 H 107 H 114 H Respiratory Rate 25 H 25 H 22 H Blood Pressure 106/68 114/71 Pulse Oximetry 07/02/20 15:04 07/02/20 16:00 07/02/20 18:00 Temperature 36.2 C L Pulse Rate 111 H 95 Respiratory Rate 20 Blood Pressure 121/62 Pulse Oximetry 94 94 07/02/20 19:43 07/02/20 20:00 07/02/20 20:31 Temperature 36.1 C L Pulse Rate 89 85 100 Respiratory Rate 20 20 Blood Pressure 103/61 Pulse Oximetry 99 99 94 07/02/20 20:33 07/02/20 22:00 07/02/20 23:51 Temperature 36.1 C L Pulse Rate 100 93 67 Respiratory Rate 20 18 Blood Pressure 115/73 Pulse Oximetry 99 07/03/20 00:00 07/03/20 00:30 07/03/20 01:42 Temperature Pulse Rate 125 H Respiratory Rate Blood Pressure Pulse Oximetry 99 99 96 07/03/20 02:00 07/03/20 02:19 07/03/20 03:28 Temperature 36.0 C L Pulse Rate 85 90 Respiratory Rate 22 H Blood Pressure 115/76 116/72 Pulse Oximetry 98 07/03/20 04:00 07/03/20 06:00 07/03/20 07:50 Temperature Pulse Rate 80 92 93 Respiratory Rate 20 Blood Pressure Pulse Oximetry 99 07/03/20 07:56 07/03/20 08:00 Temperature Pulse Rate 95 Respiratory Rate 20 Blood Pressure Pulse Oximetry 95 Intake/Output Intake/Output: Intake & Output 0207/01/20 07/02/20 07/03/20 23:59 23:59 23:
--- NOTE | 2020-07-03 10:00 | PM.PNPUL ---
Progress Note: A&P Assessment and Plan (1) COPD (chronic obstructive pulmonary disease): Code(s): J44.9 - Chronic obstructive pulmonary disease, unspecified Status: Acute Assessment and Plan: 2/4 patient with a history of tobacco use and severe emphysema noted on a CT scan from 10 years ago. Currently patient has severe panlobular emphysema on her CT scan of the chest and right pneumothorax which is resolved after chest tube placement. Currently patient denies any wheezing, fever, chills, change in sputum, hemoptysis. I do not believe she has a COPD exacerbation or pneumonia at this time. Patient states that her nebulizers have helped her in the past and I will initiate albuterol and ipratropium nebulizers Q 6 hours while awake. I do not see a need for systemic or inhaled corticosteroids at this time. I do not see a need for antibiotics at this time. I will send alpha 1 antitrypsin as she has extensive upper and lower lobe panlobular emphysema. 2/ No wheezes, tolerating duonebs for now, continue for now and also continue on discharge. . 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 Possibly right increased now but in setting of pneumothorax. Will need CT scan in 3 months after pneumothorax resolved to better assess for possible cancer. Will follow with you. (2) Pneumothorax on right: Code(s): J93.9 - Pneumothorax, unspecified Status: Acute Assessment and Plan: General surgery has been consulted to manage her chest tube. 2/4 Patient with a secondary pneumothorax from her panlobular emphysema. Etiology of the pneumothorax is likely a ruptured subpleural bleb. Patient would benefit from a definitive procedure so as to prevent further pneumothoraces and will eventually need referral to thoracic surgery or interventional pulmonary. Currently there is no air leak on 20 cm water pressure. Agree with supplemental oxygen at this time. 2/5 CXR this morning on suction without pneumothorax. on water seal now without air leak. Repeat CXR later today. Subjective Date/time seen: 07/03/20 10:00 Interval history: 07/02 Narrative: This is a 64-year-old woman with a history of anal cancer in 2015 status post chemotherapy and radiation. Patient states that she has had no recurrence but needs a follow-up colonoscopy. Patient has a history of COPD diagnosed approximately 10 years ago and she has been on and off of inhalers only for the last 1.5 years. Patient was in her usual state of health on 10/17/2020 when she developed shortness of breath chest pressure and right-sided chest pain. Symptoms persisted and on to 3 packs [place] called EMT who said that her vital signs were stable and she then went to urgent care who performed a chest x-ray and said there was no pneumonia and gave her prednisone and inhaler for a COPD exacerbation. Symptoms persisted and patient presented to the emergency room at [facility] on 07/02 and the patient was found to have a large right pneumothorax. Arterial blood gas on 10 L non-rebreather was 7.33/45/234. Patient had a chest tube placed and she states that automatically she felt completely better. Patient has never had a previous pneumothorax. I was consulted to leave recommendations regarding her COPD. General surgery is consulted to manage her chest tube. Patient had a CT scan on 11/03/2009 and the report says severe emphysema. Patient was exposed to secondhand tobacco smoke from her father in childhood. Patient started smoking cigarettes at age 15 and has smoked 1 pack per day on average throughout her life. She has recently quit on 06/04/2020. Patient denies smoking marijuana, vaping, or other illicit drug use. 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 Patient intermittently takes albuterol nebulizers p.r.n.. She takes anywhere from 0-2 nebulizers a day. Patient
[2020-07-03] MEDS: HYDROcodone/acetaminophen (*CRX) 5-325 MG TABLET 1 TAB PO ×2 (10:05→17:41)
[2020-07-03] MEDS: CYANOCOBALAMIN 500 MCG TABLET PO (10:08)
[2020-07-03] MEDS: CHOLECALCIFEROL 400 UNITS TABLET (VIT D) PO (10:08)
[2020-07-03] MEDS: FOLIC ACID 1 MG TABLET PO (10:08)
[2020-07-03] MEDS: ASPIRIN 81 MG CHEWABLE TABLET PO (10:11)
--- NOTE | 2020-07-03 12:26 | PCNSR ---
On 07/03/20, the student, Faith Mata, provided care and completed [facility] documentation on this patient. I have reviewed the student's documentation and agree with the findings.
--- NOTE | 2020-07-03 12:27 | PM.CNCAR ---
Assessment and Plan Assessment and plan (1) Cardiomyopathy: Code(s): I42.9 - Cardiomyopathy, unspecified Status: Acute Assessment and Plan: Severe LV dysfunction with pattern of akinesis and dyskinesis consistent with possible takotsubo cardiomyopathy. However, while multi-vessel CAD cannot be excluded clinically Takotsubo more likely given fairly rapid risk and fall pattern with Troponin, prominent EKG abnormalities developing well after resolution of sxs, persistent tachycardia. -ASA 81mg daily, GDMT for her cardiomyopathy with BB, MARIBEL-I, statin as tolerated. LDL 69. -Add Toprol XL 12.5mg daily as tolerated along with Ramipril 1.25mg daily as BP allows. It is unclear if she would be able to obtain/afford Entresto. -She is not in decompensated heart failure at present so will hold on diuretic therapy. Monitor volume status. Cont on telemetry overnight. -Repeat 12 lead EKG in AM -Discussed ischemic evaluation with coronary angiography. Given her clinical presentation and her desire to defer at this time provided she remains hemodynamically stable and asymptomatic, may begin medical therapy and observe. I advised her we cannot exclude severe underlying CAD as explanation however, given the relatively low Trop rise, significant subsequent EKG changes and marked abnormalities on Echo takotsubo CM more likely. -All questions answered to her satisfaction. PT at higer risk for complications given her low body weight, poor lung function and pulmonary HTN with risks for respiratory decompensation, adverse bleeding, arrhythmias. -DVT prophylaxis We discussed the dangers associated her LV dysfunction with regard to increased risk for VT/VF. Monitor for ventricular arrhythmias. Holding off on systemic anticoagulation due to chest tube removal earlier today. (2) Acute hypoxemic respiratory failure: Code(s): J96.01 - Acute respiratory failure with hypoxia Status: Acute Assessment and Plan: Improving with O2 supplementation, status post chest tube and subsequent removal for pneumothorax. Continue bronchodilator as appropriate per pulmonology. Patient has significant pulmonary hypertension likely related underlying lung disease. (3) Elevated troponin: Code(s): R77.8 - Other specified abnormalities of plasma proteins Status: Acute Assessment and Plan: As above. Less likely acute coronary syndrome and/or plaque rupture but secondary to marked LV strain and severe LV dysfunction as above. (4) Pneumothorax on right: Code(s): J93.9 - Pneumothorax, unspecified Status: Acute Assessment and Plan: Per surgery. Chest tube removed. Monitor for recurrence of pneumothorax. Pneumothorax likely secondary to ruptured pulmonary bleb. Repeat imaging recommended to exclude malignancy. (5) Emphysema of lung: Code(s): J43.9 - Emphysema, unspecified Status: Acute Assessment and Plan: Management per primary service and pulmonology. History of Present Illness History of Present Illness Consult date/time: Date of service: 07/03/20 12:27 Cardiology consultation at the request of Dr. Mariee at [facility] service for my opinion regarding elevated troponin. Requesting physician: David Mariee MD Consult reason: Other (elevated troponin) Reason For Visit: COPD/ PNEUMOTHORAX Narrative: Patient is a pleasant 64-year-old female with remote history of anal cancer 2015 status post chemotherapy radiation therapy, emphysema/COPD who has not had routine medical care given lack of insurance until recently presented with complaints of progressive exertional dyspnea limiting her activity. She reports presenting to urgent care on Monday for c/o 1 month progressive CORCORAN without discomfort in her chest. She reports a chest x-ray performed without evidence of pneumonia or pneumothorax as she reports. She states that she thought she had pneumonia insert was given antibiotic and steroids w
[2020-07-03 14:23] LABS: Folic Acid 7.9 ng/mL (2.76->20); Vitamin B12 > 1000.0 pg/mL (239-931)
--- NOTE | 2020-07-03 16:06 | PM.IMPN ---
Progress Note: A&P Assessment and Plan (1) Acute hypoxemic respiratory failure: Code(s): J96.01 - Acute respiratory failure with hypoxia Status: Acute Assessment and Plan: 07/03/20 16:06 Sugar Carter is a 64 year old female with long history of smoking and has not seen a primary care physician in a long time and does not have a spray gun striper, patient presented emergency department with a complaint shortness of breath patient states at baseline she is short of breath with exertion however her symptoms were progressive getting worse EMS was called and patient was desaturating 80% on room air, patient was placed on non-rebreather mask a brought to the emergency depart, patient had CTA of the chest did not show pulmonary emboli but patient did have a small to moderate size pneumothorax on right side, chest tube was placed in the emergency department and currently on suction, seen by surgery team plan is to continue the chest tube, repeat a chest x-ray in the morning further recommendation to follow, will consult spray gun striper for further recommendation. Patient with history of hyperlipidemia patient states at 1 time she was prescribed statin but did not take it. 07/03 patient had a chest x-ray this morning did not show any pneumothorax seen by surgery service, placed on water seal, repeat CXR in the afternoon did not any pneumothorax, patient remains clinically stable, does complaint of pain in her chest along the chest but denies any shortness of breath, fever or chills, patient has elevated tropes, patient is seen by Cardiology and further recommendation to follow. (2) Acute exacerbation of chronic obstructive pulmonary disease: Code(s): J44.1 - Chronic obstructive pulmonary disease with (acute) exacerbation Status: Acute Assessment and Plan: Patient with long history of smoking now with severe COPD will consult spray gun striper further recommendation (3) Elevated troponin: Code(s): R77.8 - Other specified abnormalities of plasma proteins Status: Acute Assessment and Plan: Patient with elevated tropes most likely demand ischemia secondary to hypoxia and pneumothorax however will consult cardiology for further recommendation and will do the cardiac echo. (4) Pneumothorax on right: Code(s): J93.9 - Pneumothorax, unspecified Status: Acute Assessment and Plan: Now with chest tube seen by surgery team further recommendation to follow Subjective Date/time seen: 07/03/20 16:06 Sugar Carter is a 64 year old female with long history of smoking and has not seen a primary care physician in a long time and does not have a spray gun striper, patient presented emergency department with a complaint shortness of breath patient states at baseline she is short of breath with exertion however her symptoms were progressive getting worse EMS was called and patient was desaturating 80% on room air, patient was placed on non-rebreather mask a brought to the emergency depart, patient had CTA of the chest did not show pulmonary emboli but patient did have a small to moderate size pneumothorax on right side, chest tube was placed in the emergency department and currently on suction, seen by surgery team plan is to continue the chest tube, repeat a chest x-ray in the morning further recommendation to follow, will consult spray gun striper for further recommendation. Patient with history of hyperlipidemia patient states at 1 time she was prescribed statin but did not take it. 07/03 patient had a chest x-ray this morning did not show any pneumothorax seen by surgery service, placed on water seal, repeat CXR in the afternoon did not any pneumothorax, patient remains clinically stable, does complaint of pain in her chest along the chest but denies any shortness of breath, fever or chills, patient has elevated tropes, patient is seen by Cardiology and further recommendation to follow. Review of Systems Review of Systems: A
[2020-07-04] VITALS (27 sets, daily range): BP systolic 90–119; BP diastolic 43–60; PULSE 96–127; RESP 20–30; TEMP 36–36.9; O2SAT 89–98
--- NOTE | 2020-07-04 07:00 | ECG_ITS ---
Measurements Intervals [place] Rate: 120 P: 83 IL: 93 QRS: 118 QRSD: 92 T: 236 QT: 337 QTc: 476 Interpretive Statements SINUS TACHYCARDIA WITH SHORT IL INTERVAL ATRIAL PREMATURE COMPLEXES RIGHT AXIS DEVIATION DELAYED PRECORDIAL R/S TRANSITION LOW QRS VOLTAGE IN LIMB LEADS ST-T WAVE ABNORMALITY IN INF/LAT LEADS- CONSIDER ISCHEMIA BASELINE ARTIFACT- I, II, III, AVR, AVL, AVF, V1 ABNORMAL ECG Electronically Signed On 07-04-2020 8:10:51 ENVIRONMENTAL SAFETY SPECIALIST by Elliot Bobby D.O.
[2020-07-04 07:48] LABS: Hematocrit 37.7 % (37.0-47.0); Hemoglobin 12.9 g/dL (12.0-15.0); Mean Corpuscular HGB Conc 34.2 g/dl (32-36); Mean Corpuscular Hemoglobin 33.3 pg (26-34); Mean Corpuscular Volume 97.4 fl (80-100); Mean Platelet Volume 9.6 fl (7.4-10.4); Platelet Count Result 186 k/mm3 (150-375); Red Blood Count 3.87 M/mm3 (4.2-5.4); Red Cell Distribution Width 11.7 % (11.5-14.5); White Blood Count 9.8 K/mm3 (4.5-10.0)
[2020-07-04 07:59] LABS: Alanine Aminotransferase 55 U/L (4-35); Albumin Level 3.2 g/dL (3.5-5.1); Alkaline Phosphatase 86 U/L (38-126); Anion Gap 1 mmol/L (8-16); Aspartate Amino Transferase 55 U/L (14-36); Bilirubin,Total 0.7 mg/dL (0.2-1.3); Blood Urea Nitrogen 15 mg/dL (7-17); Calcium 8.2 mg/dL (8.4-10.2); Carbon Dioxide 32 mmol/L (22-30); Chloride 95 mmol/L (98-107); Estimated CRCL calculation 54 ml/min; Estimated Glomerular Filt Rate > 60; Glucose 84 mg/dL (65-105); Magnesium 1.7 mg/dL (1.6-2.3); Potassium 4.1 mmol/L (3.4-5.0); Sodium 128 mmol/L (137-145)
[2020-07-04] MEDS: IPRATROPIUM BR 0.02% INH SOLN 0.5 MG/2.5 ML VIAL INHALATION ×3 (08:01→20:01)
[2020-07-04] MEDS: ALBUTEROL SULFATE NEB 2.5 MG/0.5 ML INH INHALATION ×3 (08:01→20:01)
[2020-07-04 08:12] LABS: Troponin I 0.354 ng/mL (0.000-0.034)
[2020-07-04] MEDS: ASPIRIN 81 MG ENTERIC TABLET PO (08:29)
[2020-07-04] MEDS: FOLIC ACID 1 MG TABLET PO (08:29)
[2020-07-04] MEDS: CHOLECALCIFEROL 400 UNITS TABLET (VIT D) PO (08:29)
--- NOTE | 2020-07-04 11:19 | PM.PNCARD ---
Progress Note: A&P Additional Plan NSTEMI, acute on chronic systolic heart failure, still decompensated with gallop, , plan start LMWH, cont ASA, statin, cont rampiril, hold B-paul. Subjective Date/time seen: 07/04/20 11:19 Interval history: No acute events Feels better but appears SOB on examination Tele: Sinus tachycardia Review of Systems Review of Systems: All systems reviewed & are unremarkable except as noted in HPI and below Exam Const: General: comfortable and no acute distress Other: Able to lie flat HENMT: General nose exam: Normal nares present and no epistaxis Mouth: Yes moist mucous membranes Eyes: Sclera: sclerae normal Pupils: Equal, round and reactive pupils present Neck: Neck: supple and no JVD Carotids: no bruits Resp: Auscultation: clear to auscultation bilaterally and lung sounds not diminished Other: No chest wall tenderness Cardio: Rate: regular rate Rhythm: regular rhythm Heart sounds: Gallop heart sound present, no murmurs and no rubs GI: GI Palp: Yes Soft to palpation and No Tenderness to palpation present (GI) Auscultation: normal bowel sounds Skin: General skin exam: normal color, rashes and/or lesions noted and no erythema Other: Warm Neuro: Cranial nerves: Yes Equal, round and reactive pupils present Speech: normal speech Other: No obvious focal deficit or facial asymmetry Extrem: General: no edema Other: Normal capillary refills Intact distal pulses. Objective Data Vital Signs Vital Signs: Vital Signs - 24 hr 07/03/20 12:00 07/03/20 13:40 07/03/20 13:50 Temperature 36.5 C Pulse Rate 123 H 95 94 Respiratory Rate 28 H 20 20 Blood Pressure 99/65 L Pulse Oximetry 95 07/03/20 14:00 07/03/20 16:00 07/03/20 17:39 Temperature 36.6 C Pulse Rate 100 115 H 88 Respiratory Rate 12 20 Blood Pressure 100/51 L Pulse Oximetry 95 07/03/20 17:40 07/03/20 17:48 07/03/20 18:00 Temperature Pulse Rate 94 117 H Respiratory Rate 20 Blood Pressure Pulse Oximetry 95 07/03/20 19:48 07/03/20 20:00 07/03/20 22:00 Temperature 36.6 C Pulse Rate 120 H 100 103 H Respiratory Rate 18 Blood Pressure 98/53 L Pulse Oximetry 92 92 07/03/20 22:37 07/03/20 23:35 07/04/20 00:00 Temperature 36.7 C Pulse Rate 100 120 H 117 H Respiratory Rate 20 Blood Pressure 95/55 L Pulse Oximetry 93 98 92 07/04/20 02:00 07/04/20 03:53 07/04/20 03:54 Temperature 36.0 C L Pulse Rate 106 H 115 H Respiratory Rate 20 Blood Pressure 97/55 L Pulse Oximetry 93 95 07/04/20 04:00 07/04/20 06:00 07/04/20 06:12 Temperature Pulse Rate 98 108 H Respiratory Rate Blood Pressure Pulse Oximetry 96 07/04/20 08:00 07/04/20 08:01 07/04/20 08:31 Temperature 36.8 C Pulse Rate 125 H 117 H Respiratory Rate 24 H 20 Blood Pressure 96/60 L Pulse Oximetry 92 90 90 07/04/20 10:00 Temperature Pulse Rate 115 H Respiratory Rate Blood Pressure Pulse Oximetry Intake/Output Intake/Output: Intake & Output 07/01/20 07/02/20 07/03/20 07/04/20 23:59 23:59 23:59 23:59 Intake Total 1340 590 640 Output Total 400 1300 1500 Balance 798 -797 -851 Meds/Results Medications: Active Medications Generic Name Dose Route Start Last Admin Trade Name Freq PRN Reason Stop Dose Admin Acetaminophen 650 mg 07/02/20 15:01 07/03/20 06:03 Acetaminophen 325 Mg Tablet PO 650 mg Q6H PRN Administration Mild Pain (1-3) or Fever Hydrocodone Bitart/Acetaminophen 1 tab 07/03/20 09:16 07/03/20 17:41 Hydrocodone/Acetaminophen (*Crx) 5-325 Mg Tablet PO 1 tab Q4H PRN Administration Pain Rated 4-6 Albuterol 2.5 mg 07/02/20 20:00 07/04/20 08:01 Albuterol Sulfate Neb 2.5 Mg/0.5 Ml Inh INHALATION 2.5 mg [id number] YAMINI Administration Aspirin 81 mg 07/04/20 09:00 07/04/20 08:29 Aspirin 81 Mg Enteric Tablet PO 81 mg QAM YAMINI Administration Benzocaine 1 lozenge 07/04/20 09:37 Benzoc
[2020-07-04] MEDS: ENOXAPARIN 40 MG/0.4 ML SYRINGE SUB-Q ×2 (12:45→21:53)
[2020-07-04] MEDS: ATORVASTATIN 40 MG TABLET PO (12:46)
--- NOTE | 2020-07-04 13:12 | PM.PNPUL ---
Progress Note: A&P Assessment and Plan (1) COPD (chronic obstructive pulmonary disease): Code(s): J44.9 - Chronic obstructive pulmonary disease, unspecified Status: Acute Assessment and Plan: 2/4 patient with a history of tobacco use and severe emphysema noted on a CT scan from 10 years ago. Currently patient has severe panlobular emphysema on her CT scan of the chest and right pneumothorax which is resolved after chest tube placement. Currently patient denies any wheezing, fever, chills, change in sputum, hemoptysis. I do not believe she has a COPD exacerbation or pneumonia at this time. Patient states that her nebulizers have helped her in the past and I will initiate albuterol and ipratropium nebulizers Q 6 hours while awake. I do not see a need for systemic or inhaled corticosteroids at this time. I do not see a need for antibiotics at this time. I will send alpha 1 antitrypsin as she has extensive upper and lower lobe panlobular emphysema. 2/ No wheezes, tolerating duonebs for now, continue for now and also continue on discharge. 2/6 No wheezes, on duonebs. Some SOB on 3 L NC. 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 Possibly right is increased now but in setting of pneumothorax. Will need CT scan in 3 months after pneumothorax resolved to better assess for possible cancer. Will follow with you. (2) Pneumothorax on right: Code(s): J93.9 - Pneumothorax, unspecified Status: Acute Assessment and Plan: General surgery has been consulted to manage her chest tube. 2/4 Patient with a secondary pneumothorax from her panlobular emphysema. Etiology of the pneumothorax is likely a ruptured subpleural bleb. Patient would benefit from a definitive procedure so as to prevent further pneumothoraces and will eventually need referral to thoracic surgery or interventional pulmonary. Currently there is no air leak on 20 cm water pressure. Agree with supplemental oxygen at this time. 2/5 CXR this morning on suction without pneumothorax. on water seal now without air leak. Repeat CXR on water deal with no pneumothorax and chest tube removed at 12:00 and repeat CXR with pneumothorax. 2/6 CXR with small right pneumothorax. Supplemental oxygen to help resorb. Repeat CXR in morning. If pneumothorax persists will need transfer to facility with thoracic surgery for definitive procedure. Subjective Date/time seen: 07/04/20 13:12 Interval history: 07/02 Narrative: This is a 64-year-old woman with a history of anal cancer in 2015 status post chemotherapy and radiation. Patient states that she has had no recurrence but needs a follow-up colonoscopy. Patient has a history of COPD diagnosed approximately 10 years ago and she has been on and off of inhalers only for the last 1.5 years. Patient was in her usual state of health on 10/17/2020 when she developed shortness of breath chest pressure and right-sided chest pain. Symptoms persisted and on to 3 packs [place] called EMT who said that her vital signs were stable and she then went to urgent care who performed a chest x-ray and said there was no pneumonia and gave her prednisone and inhaler for a COPD exacerbation. Symptoms persisted and patient presented to the emergency room at [facility] on 07/02 and the patient was found to have a large right pneumothorax. Arterial blood gas on 10 L non-rebreather was 7.33/45/234. Patient had a chest tube placed and she states that automatically she felt completely better. Patient has never had a previous pneumothorax. I was consulted to leave recommendations regarding her COPD. General surgery is consulted to manage her chest tube. Patient had a CT scan on 11/03/2009 and the report says severe emphysema. Patient was exposed to secondhand tobacco smoke from her father in childhood. Patient started smoking cigarettes at age 15 and has smoked 1 pack per day on average throughout her
--- NOTE | 2020-07-04 14:05 | PM.IMPN ---
Progress Note: A&P Assessment and Plan (1) Acute hypoxemic respiratory failure: Code(s): J96.01 - Acute respiratory failure with hypoxia Status: Acute Assessment and Plan: 07/04/20 14:05 Sugar Carter is a 64 year old female with long history of smoking and has not seen a primary care physician in a long time and does not have a label maker, patient presented emergency department with a complaint shortness of breath patient states at baseline she is short of breath with exertion however her symptoms were progressive getting worse EMS was called and patient was desaturating 80% on room air, patient was placed on non-rebreather mask a brought to the emergency depart, patient had CTA of the chest did not show pulmonary emboli but patient did have a small to moderate size pneumothorax on right side, chest tube was placed in the emergency department and currently on suction, seen by surgery team plan is to continue the chest tube, repeat a chest x-ray in the morning further recommendation to follow, will consult label maker for further recommendation. Patient with history of hyperlipidemia patient states at 1 time she was prescribed statin but did not take it. 07/03 patient had a chest x-ray this morning did not show any pneumothorax seen by surgery service, placed on water seal, repeat CXR in the afternoon did not any pneumothorax, patient remains clinically stable, does complaint of pain in her chest along the chest but denies any shortness of breath, fever or chills, patient has elevated tropes, patient is seen by Cardiology and further recommendation to follow. 07/04 patient still complains of chest pain and shortness of breath repeat chest x-ray this morning showed small pneumothorax seen by label maker increase the supplemental oxygen will monitor overnight if there is no improvement patient need to be transferred to tertiary care for thoracic surgeon, patient seen by Cardiology started the patient on Lovenox for non STEMI, discontinue beta-paul, continue aspirin, statin, and rampril, remains clinically stable will have a cardiac catheterization on Monday (2) Acute exacerbation of chronic obstructive pulmonary disease: Code(s): J44.1 - Chronic obstructive pulmonary disease with (acute) exacerbation Status: Acute Assessment and Plan: Patient with long history of smoking now with severe COPD will consult label maker further recommendation (3) Elevated troponin: Code(s): R77.8 - Other specified abnormalities of plasma proteins Status: Acute Assessment and Plan: Patient with elevated tropes most likely demand ischemia secondary to hypoxia and pneumothorax however will consult cardiology for further recommendation and will do the cardiac echo. (4) Pneumothorax on right: Code(s): J93.9 - Pneumothorax, unspecified Status: Acute Assessment and Plan: Now with chest tube seen by surgery team further recommendation to follow Subjective Date/time seen: 07/04/20 14:05 Sugar Carter is a 64 year old female with long history of smoking and has not seen a primary care physician in a long time and does not have a label maker, patient presented emergency department with a complaint shortness of breath patient states at baseline she is short of breath with exertion however her symptoms were progressive getting worse EMS was called and patient was desaturating 80% on room air, patient was placed on non-rebreather mask a brought to the emergency depart, patient had CTA of the chest did not show pulmonary emboli but patient did have a small to moderate size pneumothorax on right side, chest tube was placed in the emergency department and currently on suction, seen by surgery team plan is to continue the chest tube, repeat a chest x-ray in the morning further recommendation to follow, will consult label maker for further recommendation. Patient with history of hyperlipidemia patient states at
[2020-07-05] VITALS (26 sets, daily range): BP systolic 89–117; BP diastolic 51–65; PULSE 4–118; RESP 16–24; TEMP 36.1–36.9; O2SAT 91–98
[2020-07-05 04:49] LABS: Hematocrit 36.6 % (37.0-47.0); Hemoglobin 12.3 g/dL (12.0-15.0); Mean Corpuscular HGB Conc 33.6 g/dl (32-36); Mean Corpuscular Hemoglobin 32.5 pg (26-34); Mean Corpuscular Volume 96.6 fl (80-100); Mean Platelet Volume 9.3 fl (7.4-10.4); Platelet Count Result 210 k/mm3 (150-375); Red Blood Count 3.79 M/mm3 (4.2-5.4); Red Cell Distribution Width 11.5 % (11.5-14.5)
[2020-07-05 05:03] LABS: Alanine Aminotransferase 37 U/L (4-35); Alkaline Phosphatase 88 U/L (38-126); Anion Gap 2 mmol/L (8-16); Aspartate Amino Transferase 38 U/L (14-36); Bilirubin,Total 0.6 mg/dL (0.2-1.3); Blood Urea Nitrogen 12 mg/dL (7-17); Calcium 8.3 mg/dL (8.4-10.2); Carbon Dioxide 32 mmol/L (22-30); Chloride 98 mmol/L (98-107); Estimated CRCL calculation 54 ml/min; Estimated Glomerular Filt Rate > 60; Glucose 85 mg/dL (65-105); Magnesium 1.8 mg/dL (1.6-2.3); Potassium 3.7 mmol/L (3.4-5.0); Sodium 132 mmol/L (137-145)
[2020-07-05] MEDS: CHOLECALCIFEROL 400 UNITS TABLET (VIT D) PO (08:22)
[2020-07-05] MEDS: ENOXAPARIN 40 MG/0.4 ML SYRINGE SUB-Q ×2 (08:22→20:04)
[2020-07-05] MEDS: ATORVASTATIN 40 MG TABLET PO (08:22)
[2020-07-05] MEDS: FOLIC ACID 1 MG TABLET PO (08:22)
[2020-07-05] MEDS: ASPIRIN 81 MG ENTERIC TABLET PO (08:23)
[2020-07-05] MEDS: BENZOCAINE/MENTHOL (*BKC) 18 EA LOZENGE 1 LOZENGE PO (08:23)
[2020-07-05] MEDS: IPRATROPIUM BR 0.02% INH SOLN 0.5 MG/2.5 ML VIAL INHALATION ×3 (08:56→20:18)
[2020-07-05] MEDS: ALBUTEROL SULFATE NEB 2.5 MG/0.5 ML INH INHALATION ×3 (08:56→20:17)
--- NOTE | 2020-07-05 10:44 | PM.PNPUL ---
Progress Note: A&P Assessment and Plan (1) COPD (chronic obstructive pulmonary disease): Code(s): J44.9 - Chronic obstructive pulmonary disease, unspecified Status: Acute Assessment and Plan: 2/ patient with a history of tobacco use and severe emphysema noted on a CT scan from 10 years ago. Currently patient has severe panlobular emphysema on her CT scan of the chest and right pneumothorax which is resolved after chest tube placement. Currently patient denies any wheezing, fever, chills, change in sputum, hemoptysis. I do not believe she has a COPD exacerbation or pneumonia at this time. Patient states that her nebulizers have helped her in the past and I will initiate albuterol and ipratropium nebulizers Q 6 hours while awake. I do not see a need for systemic or inhaled corticosteroids at this time. I do not see a need for antibiotics at this time. I will send alpha 1 antitrypsin as she has extensive upper and lower lobe panlobular emphysema. 07/03 No wheezes, tolerating duonebs for now, continue for now and also continue on discharge. 07/04 No wheezes, on duonebs. Some SOB on 3 L NC. 07/05 No wheezes on duonebs, continue 3 L for now. 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 Possibly right is increased now but in setting of pneumothorax. Will need CT scan in 3 months after pneumothorax resolved to better assess for possible cancer. Will follow with you. (2) Pneumothorax on right: Code(s): J93.9 - Pneumothorax, unspecified Status: Acute Assessment and Plan: General surgery has been consulted to manage her chest tube. 2/ Patient with a secondary pneumothorax from her panlobular emphysema. Etiology of the pneumothorax is likely a ruptured subpleural bleb. Patient would benefit from a definitive procedure so as to prevent further pneumothoraces and will eventually need referral to thoracic surgery or interventional pulmonary. Currently there is no air leak on 20 cm water pressure. Agree with supplemental oxygen at this time. 2/5 CXR this morning on suction without pneumothorax. on water seal now without air leak. Repeat CXR on water deal with no pneumothorax and chest tube removed at 12:00 and repeat CXR with pneumothorax. 2/6 CXR with small right pneumothorax. Supplemental oxygen to help resorb. Repeat CXR in morning. If pneumothorax persists will need transfer to facility with thoracic surgery for definitive procedure. SOB later in day and CXR without pneumothorax. 07/05 CXR with small right apical pneumothorax (reviewed with radiologist) which remains small and similar to yesterday morning film. Some variation likely due from angle and or inspiratory phase. Overall no change. From my perspective she is stable for cardiac cath on 07/06. Subjective Date/time seen: 07/05/20 10:44 Interval history: 07/02 Narrative: This is a 64-year-old woman with a history of anal cancer in 2015 status post chemotherapy and radiation. Patient states that she has had no recurrence but needs a follow-up colonoscopy. Patient has a history of COPD diagnosed approximately 10 years ago and she has been on and off of inhalers only for the last 1.5 years. Patient was in her usual state of health on 10/17/2020 when she developed shortness of breath chest pressure and right-sided chest pain. Symptoms persisted and on to 3 packs [place] called EMT who said that her vital signs were stable and she then went to urgent care who performed a chest x-ray and said there was no pneumonia and gave her prednisone and inhaler for a COPD exacerbation. Symptoms persisted and patient presented to the emergency room at [facility] on 07/02 and the patient was found to have a large right pneumothorax. Arterial blood gas on 10 L non-rebreather was 7.33/45/234. Patient had a chest tube placed and she states that automatically she felt completely better. Patient has never had a previous pneumothorax. I was
--- NOTE | 2020-07-05 11:52 | PM.PNCARD ---
Progress Note: A&P Additional Plan NSTEMI, Acute on chronic systolic heart failure, still decompensated, plan [facility] in AM, lasix 20 mg IV one dose today, cont ramipril, heparin, ASA, Statin Subjective Date/time seen: 07/05/20 11:52 Interval history: No acute events overnight No chest pain Still having SOB Review of Systems Review of Systems: All systems reviewed & are unremarkable except as noted in HPI and below Exam Const: General: comfortable and no acute distress Other: Able to lie flat HENMT: General nose exam: Normal nares present and no epistaxis Mouth: Yes moist mucous membranes Eyes: Sclera: sclerae normal Pupils: Equal, round and reactive pupils present Neck: Neck: supple and no JVD Carotids: no bruits Resp: Auscultation: clear to auscultation bilaterally and lung sounds not diminished Other: No chest wall tenderness Cardio: Rate: regular rate Rhythm: regular rhythm Heart sounds: no gallops, no murmurs and no rubs GI: GI Palp: Yes Soft to palpation and No Tenderness to palpation present (GI) Auscultation: normal bowel sounds Skin: General skin exam: normal color, rashes and/or lesions noted and no erythema Other: Warm Neuro: Cranial nerves: Yes Equal, round and reactive pupils present Speech: normal speech Other: No obvious focal deficit or facial asymmetry Extrem: General: no edema Other: Normal capillary refills Intact distal pulses. Objective Data Vital Signs Vital Signs: Vital Signs - 24 hr 07/04/20 12:00 07/04/20 12:05 07/04/20 14:00 Temperature 36.8 C Pulse Rate 127 H 104 H Respiratory Rate 26 H Blood Pressure 119/43 L Pulse Oximetry 89 L 90 07/04/20 14:16 07/04/20 14:26 07/04/20 16:00 Temperature 36.8 C Pulse Rate 112 H 116 H 116 H Respiratory Rate 20 20 30 H Blood Pressure 90/50 L Pulse Oximetry 94 07/04/20 17:00 07/04/20 18:00 07/04/20 19:54 Temperature 36.9 C Pulse Rate 115 H 117 H Respiratory Rate 20 Blood Pressure 93/57 L Pulse Oximetry 90 95 07/04/20 20:00 07/04/20 20:01 07/04/20 20:12 Temperature Pulse Rate 96 113 H 102 H Respiratory Rate 22 H 20 Blood Pressure Pulse Oximetry 95 98 07/04/20 22:00 07/04/20 23:43 07/04/20 23:59 Temperature 36.1 C L Pulse Rate 121 H 102 H Respiratory Rate 20 Blood Pressure 97/58 L Pulse Oximetry 95 95 07/05/20 00:00 07/05/20 02:00 07/05/20 04:00 Temperature 36.8 C Pulse Rate 105 H 92 99 Respiratory Rate 16 Blood Pressure 96/54 L Pulse Oximetry 94 07/05/20 06:00 07/05/20 08:00 07/05/20 08:21 Temperature 36.8 C Pulse Rate 86 118 H 106 H Respiratory Rate 24 H Blood Pressure 89/51 L Pulse Oximetry 91 07/05/20 08:27 07/05/20 08:58 07/05/20 09:07 Temperature Pulse Rate 105 H 103 H Respiratory Rate 24 H 22 H Blood Pressure Pulse Oximetry 91 95 07/05/20 10:00 Temperature Pulse Rate 112 H Respiratory Rate Blood Pressure Pulse Oximetry Intake/Output Intake/Output: Intake & Output 07/02/20 07/03/20 07/04/20 07/05/20 23:59 23:59 23:59 23:59 Intake Total 4859 127 7239 740 Output Total 400 9958 9287 Balance 176 -751 -486 749 Meds/Results Medications: Active Medications Generic Name Dose Route Start Last Admin Trade Name Freq PRN Reason Stop Dose Admin Acetaminophen 650 mg 07/02/20 15:01 07/03/20 06:03 Acetaminophen 325 Mg Tablet PO 650 mg Q6H PRN Administration Mild Pain (1-3) or Fever Hydrocodone Bitart/Acetaminophen 1 tab 07/03/20 09:16 07/03/20 17:41 Hydrocodone/Acetaminophen (*Crx) 5-325 Mg Tablet PO 1 tab Q4H PRN Administration Pain Rated 4-6 Albuterol 2.5 mg 07/02/20 20:00 07/05/20 08:56 Albuterol Sulfate Neb 2.5 Mg/0.5 Ml Inh INHALATION 2.5 mg [id number] YAMINI Administration Aspirin 81 mg 07/04/20 09:00 07/05/20 08:23 Aspirin 81 Mg Enteric Tablet PO 81 mg QAM YAMINI Administration Atorvastatin Calcium 40 mg 07/04/20 09:00 07/05/20 08:22 Vijay
[2020-07-05] MEDS: FUROSEMIDE INJ 40 MG/4 ML VIAL 20 MG IV PUSH (12:42)
--- NOTE | 2020-07-05 13:55 | PM.IMPN ---
Progress Note: A&P Assessment and Plan (1) Acute hypoxemic respiratory failure: Code(s): J96.01 - Acute respiratory failure with hypoxia Status: Acute Assessment and Plan: 07/05/20 13:55 Sugar Carter is a 64 year old female with long history of smoking and has not seen a primary care physician in a long time and does not have a manager voice, patient presented emergency department with a complaint shortness of breath patient states at baseline she is short of breath with exertion however her symptoms were progressive getting worse EMS was called and patient was desaturating 80% on room air, patient was placed on non-rebreather mask a brought to the emergency depart, patient had CTA of the chest did not show pulmonary emboli but patient did have a small to moderate size pneumothorax on right side, chest tube was placed in the emergency department and currently on suction, seen by surgery team plan is to continue the chest tube, repeat a chest x-ray in the morning further recommendation to follow, will consult manager voice for further recommendation. Patient with history of hyperlipidemia patient states at 1 time she was prescribed statin but did not take it. 07/03 patient had a chest x-ray this morning did not show any pneumothorax seen by surgery service, placed on water seal, repeat CXR in the afternoon did not any pneumothorax, patient remains clinically stable, does complaint of pain in her chest along the chest but denies any shortness of breath, fever or chills, patient has elevated tropes, patient is seen by Cardiology and further recommendation to follow. 07/04 patient still complains of chest pain and shortness of breath repeat chest x-ray this morning showed small pneumothorax seen by manager voice increase the supplemental oxygen will monitor overnight if there is no improvement patient need to be transferred to tertiary care for thoracic surgeon, patient seen by Cardiology started the patient on Lovenox for non STEMI, discontinue beta-paul, continue aspirin, statin, and rampril, remains clinically stable will have a cardiac catheterization on Wednesday 07/05 today patient states feeling much better not a short of breath patient had a chest x-ray this morning which showed patient has a small apical pneumothorax seen by pulmonology suggested there is no significant change from chest x-ray done on 07/04 and patient is clinically stable does not need further workup, patient is clinically stable to have a cardiac catheterization tomorrow, will follow-up and further recommendation to follow (2) Acute exacerbation of chronic obstructive pulmonary disease: Code(s): J44.1 - Chronic obstructive pulmonary disease with (acute) exacerbation Status: Acute Assessment and Plan: Patient with long history of smoking now with severe COPD will consult manager voice further recommendation (3) Elevated troponin: Code(s): R77.8 - Other specified abnormalities of plasma proteins Status: Acute Assessment and Plan: Patient with elevated tropes most likely demand ischemia secondary to hypoxia and pneumothorax however will consult cardiology for further recommendation and will do the cardiac echo. (4) Pneumothorax on right: Code(s): J93.9 - Pneumothorax, unspecified Status: Acute Assessment and Plan: Now with chest tube seen by surgery team further recommendation to follow Subjective Date/time seen: 07/05/20 13:55 Sugar Carter is a 64 year old female with long history of smoking and has not seen a primary care physician in a long time and does not have a manager voice, patient presented emergency department with a complaint shortness of breath patient states at baseline she is short of breath with exertion however her symptoms were progressive getting worse EMS was called and patient was desaturating 80% on room air, patient was placed on non-rebreather mask a brought to the emergency depart, trace
[2020-07-06] VITALS (31 sets, daily range): BP systolic 95–132; BP diastolic 44–81; PULSE 80–112; RESP 18–28; TEMP 36.3–36.6; O2SAT 92–97
[2020-07-06 04:55] LABS: Hematocrit 36.4 % (37.0-47.0); Hemoglobin 12.2 g/dL (12.0-15.0); Mean Corpuscular HGB Conc 33.5 g/dl (32-36); Mean Corpuscular Hemoglobin 32.9 pg (26-34); Mean Corpuscular Volume 98.1 fl (80-100); Mean Platelet Volume 9.1 fl (7.4-10.4); Platelet Count Result 223 k/mm3 (150-375); Red Blood Count 3.71 M/mm3 (4.2-5.4); Red Cell Distribution Width 11.7 % (11.5-14.5); White Blood Count 6.2 K/mm3 (4.5-10.0)
[2020-07-06 05:13] LABS: Alanine Aminotransferase 29 U/L (4-35); Alkaline Phosphatase 82 U/L (38-126); Anion Gap 2 mmol/L (8-16); Aspartate Amino Transferase 30 U/L (14-36); Bilirubin,Total 0.5 mg/dL (0.2-1.3); Blood Urea Nitrogen 11 mg/dL (7-17); Calcium 7.9 mg/dL (8.4-10.2); Carbon Dioxide 34 mmol/L (22-30); Chloride 98 mmol/L (98-107); Estimated CRCL calculation 56 ml/min; Estimated Glomerular Filt Rate > 60; Glucose 93 mg/dL (65-105); Magnesium 1.8 mg/dL (1.6-2.3); Potassium 3.3 mmol/L (3.4-5.0); Sodium 134 mmol/L (137-145)
[2020-07-06] MEDS: ATORVASTATIN 40 MG TABLET PO (08:41)
[2020-07-06] MEDS: ASPIRIN 81 MG ENTERIC TABLET PO (08:41)
[2020-07-06] MEDS: FOLIC ACID 1 MG TABLET PO (08:41)
[2020-07-06] MEDS: CHOLECALCIFEROL 400 UNITS TABLET (VIT D) PO (08:41)
[2020-07-06] MEDS: IPRATROPIUM BR 0.02% INH SOLN 0.5 MG/2.5 ML VIAL INHALATION ×2 (09:03→21:32)
[2020-07-06] MEDS: ALBUTEROL SULFATE NEB 2.5 MG/0.5 ML INH INHALATION ×2 (09:03→21:32)
--- NOTE | 2020-07-06 10:30 | PM.PNPUL ---
Progress Note: A&P Assessment and Plan (1) COPD (chronic obstructive pulmonary disease): Code(s): J44.9 - Chronic obstructive pulmonary disease, unspecified Status: Acute Assessment and Plan: 2/ patient with a history of tobacco use and severe emphysema noted on a CT scan from 10 years ago. Currently patient has severe panlobular emphysema on her CT scan of the chest and right pneumothorax which is resolved after chest tube placement. Currently patient denies any wheezing, fever, chills, change in sputum, hemoptysis. I do not believe she has a COPD exacerbation or pneumonia at this time. Patient states that her nebulizers have helped her in the past and I will initiate albuterol and ipratropium nebulizers Q 6 hours while awake. I do not see a need for systemic or inhaled corticosteroids at this time. I do not see a need for antibiotics at this time. I will send alpha 1 antitrypsin as she has extensive upper and lower lobe panlobular emphysema. 2 No wheezes, tolerating duonebs for now, continue for now and also continue on discharge. 2 No wheezes, on duonebs. Some SOB on 3 L NC. 07/05 No wheezes on duonebs, continue 3 L for now. 2 No wheezes on duonebs, continue 3 L for now. 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 Possibly right is increased now but in setting of pneumothorax. Will need CT scan in 3 months after pneumothorax resolved to better assess for possible cancer. Will follow with you. (2) Pneumothorax on right: Code(s): J93.9 - Pneumothorax, unspecified Status: Acute Assessment and Plan: General surgery has been consulted to manage her chest tube. 2/ Patient with a secondary pneumothorax from her panlobular emphysema. Etiology of the pneumothorax is likely a ruptured subpleural bleb. Patient would benefit from a definitive procedure so as to prevent further pneumothoraces and will eventually need referral to thoracic surgery or interventional pulmonary. Currently there is no air leak on 20 cm water pressure. Agree with supplemental oxygen at this time. 2/5 CXR this morning on suction without pneumothorax. on water seal now without air leak. Repeat CXR on water deal with no pneumothorax and chest tube removed at 12:00 and repeat CXR with pneumothorax. 2/6 CXR with small right pneumothorax. Supplemental oxygen to help resorb. Repeat CXR in morning. If pneumothorax persists will need transfer to facility with thoracic surgery for definitive procedure. SOB later in day and CXR without pneumothorax. 2 CXR with small right apical pneumothorax (reviewed with radiologist) which remains small and similar to yesterday morning film. Some variation likely due from angle and or inspiratory phase. Overall no change. From my perspective she is stable for cardiac cath on 07/06. 07/06 CXR no pneumothorax. Oonce she is stable medically from her NSTEMI, will need outpatient referral to thoracic surgery regarding procedure to prevent future secondary pneumothorac. Subjective Date/time seen: 07/06/20 10:30 Interval history: 07/02 Narrative: This is a 64-year-old woman with a history of anal cancer in 2015 status post chemotherapy and radiation. Patient states that she has had no recurrence but needs a follow-up colonoscopy. Patient has a history of COPD diagnosed approximately 10 years ago and she has been on and off of inhalers only for the last 1.5 years. Patient was in her usual state of health on 10/17/2020 when she developed shortness of breath chest pressure and right-sided chest pain. Symptoms persisted and on to 3 packs [place] called EMT who said that her vital signs were stable and she then went to urgent care who performed a chest x-ray and said there was no pneumonia and gave her prednisone and
--- NOTE | 2020-07-06 11:54 | P.PCNCC_ITS ---
Cardiac Cath Procedure Note Date of procedure:: 07/06/20 Performing physician:: Malacih Fonseca MD Indication:: left ventricular systolic dysfunction possible CAD severe chronic obstructive lung disease with cachexia Brief clinical history:: this is a 64-year-old woman who entered the hospital with shortness of breath she has evidence of advanced lung disease she had a spontaneous pneumothorax treated with a chest tube last week. Echocardiogram demonstrated evidence of left ventricular dysfunction in a pattern typical of takotsubo cardiomyopathy. To rule out obstructive coronary disease this angiogram has been recommended. Procedure Procedure performed:: Coronary angiography left ventricular central aortic hemodynamics measurements Sedation/Medication given:: no sedation given because of baseline tenuous respiratory status Access site:: right femoral artery Estimated blood loss:: 10 cc Procedure note:: patient was brought to the cardiac catheterization lab in the postabsorptive state the right femoral triangle was prepped and draped in the usual fashion. This patient is extremely cachectic and I only used 5 cc of lid ocaine to provide local anesthesia above the very superficial femoral artery pulse. I then punctured the femoral artery using the modified Seldinger technique and placed a 5 Ukrainian vascular sheath. After this I used a JR4 catheter to advance into the left ventricle and assess left ventricular and central aortic hemodynamics and pullback pressure across the aortic valve. I did not inject the left ventricle during this procedure. The same catheter was used to engage inject the right coronary artery. After this a 5 Ukrainian FL4 catheter was used to engage inject the left coronary artery in multiple projections. The procedure was well tolerated the cineangiograms were reviewed and the case was then terminated. The femoral artery is extraordinarily superficial in this cachectic individual she is therefore not a good candidate for Angio-Seal device sheath sheath will be removed with direct manual compression in the holding area. Procedure was well tolerated and uncomplicated she had no evidence of a groin hematoma upon leaving the cathead worker. Findings:: Hemodynamics: Central aortic pressure was 128/64 left ventricle 128/0 end-diastolic of 5 there is no gradient the aortic valve. The left main coronary artery is short but widely patent the LAD is a medium caliber artery extending down to around the apex providing a significant portion of the inferior wall as well. The LAD and its branches are angiographically smooth and free of disease circumflex is a moderate caliber artery giving rise to the marginal branches as well as to the posterior circulation the circumflex is angiographically smooth and free of disease right coronary artery is non dominant medium in caliber giving rise to 2 RV branches the vessel is smooth and free of disease. Conclusion:: 1. Left coronary dominant circulation with no evidence of coronary artery disease Malachi Fonseca MD [facility]
[2020-07-06] MEDS: SODIUM CHLORIDE 0.9% IV 1,000 ML 125 ML IV CONT (14:06)
--- NOTE | 2020-07-06 14:50 | PCDIET ---
Nutrition Follow-Up Complete: Nutrition Diagnosis: Inadequate oral intake related to poor appetite as evidenced by BMI of 14.2. Nutrition Goal: Meet nutritional needs. Goal in progress. Patient NPO today for cardiac cath, but heart healthy diet to resume with dinner. Recommend liberalizing diet to regular, given no evidence of CAD per cardiology. Patient has refused supplements, but consumed average of 68% of meals since 07/04/20. Recommend supplemental potassium, as medically appropriate. Last recorded weight is 45 kg which is increased from last review. Bowel Motility: No documented BM. If medically appropriate, would consider medication to promote BM. Labs Reviewed: Cr (0.6), K (3.3), Na (134), Alb (3.0), Fausto Ca (8.7) Meds Noted: Albuterol, Lipitor, Folic Acid, Atrovent, Altace, Vitamin D, NS at 125mL/hr Additional Notes: No documented pressure ulcers. Will continue to monitor with same goal. Nutrition Monitoring and Evaluation: Follow up every 3 days.
--- NOTE | 2020-07-06 16:54 | PM.IMPN ---
Progress Note: A&P Assessment and Plan (1) Acute hypoxemic respiratory failure: Code(s): J96.01 - Acute respiratory failure with hypoxia Status: Acute Assessment and Plan: 07/06/20 16:54 Sugar Carter is a 64 year old female with long history of smoking and has not seen a primary care physician in a long time and does not have a cloth finishing range operator, patient presented emergency department with a complaint shortness of breath patient states at baseline she is short of breath with exertion however her symptoms were progressive getting worse EMS was called and patient was desaturating 80% on room air, patient was placed on non-rebreather mask a brought to the emergency depart, patient had CTA of the chest did not show pulmonary emboli but patient did have a small to moderate size pneumothorax on right side, chest tube was placed in the emergency department and currently on suction, seen by surgery team plan is to continue the chest tube, repeat a chest x-ray in the morning further recommendation to follow, will consult cloth finishing range operator for further recommendation. Patient with history of hyperlipidemia patient states at 1 time she was prescribed statin but did not take it. 07/03 patient had a chest x-ray this morning did not show any pneumothorax seen by surgery service, placed on water seal, repeat CXR in the afternoon did not any pneumothorax, patient remains clinically stable, does complaint of pain in her chest along the chest but denies any shortness of breath, fever or chills, patient has elevated tropes, patient is seen by Cardiology and further recommendation to follow. 07/04 patient still complains of chest pain and shortness of breath repeat chest x-ray this morning showed small pneumothorax seen by cloth finishing range operator increase the supplemental oxygen will monitor overnight if there is no improvement patient need to be transferred to tertiary care for thoracic surgeon, patient seen by Cardiology started the patient on Lovenox for non STEMI, discontinue beta-paul, continue aspirin, statin, and rampril, remains clinically stable will have a cardiac catheterization on Wednesday 07/05 today patient states feeling much better not a short of breath patient had a chest x-ray this morning which showed patient has a small apical pneumothorax seen by pulmonology suggested there is no significant change from chest x-ray done on 07/04 and patient is clinically stable does not need further workup, patient is clinically stable to have a cardiac catheterization tomorrow, will follow-up and further recommendation to follow 07/06 today patient had a cardiac catheterization which was essentially normal without any coronary artery disease patient with significant systolic dysfunction 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 the crime scene evidence technician suspect most likely secondary to Takotsubo cardiomyopathy, 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 cloth finishing range operator patient remains clinically stable no new pneumothorax, if remains clinically stable will do the home O2 wall tomorrow and discharge the patient home (2) Acute exacerbation of chronic obstructive pulmonary disease: Code(s): J44.1 - Chronic obstructive pulmonary disease with (acute) exacerbation Status: Acute Assessment and Plan: Patient with long history of smoking now with severe COPD will consult cloth finishing range operator further recommendation (3) Elevated troponin: Code(s): R77.8 - Other specified abnormalities of plasma proteins Status: Acute Assessment and Plan: Patient with elevated tropes most likely demand ischemia secondary to hypoxia and pneumothorax however will consult cardiology for further recommendation and will do the cardiac echo. (4) Pneumothorax on right: Code(s): J93.9 - Pneumothorax, unspecified Status: Acute Assessment and Plan: Now with chest tube seen by surgery team further recommendation to follow Subjective Date/time seen: 07/06/20 16:54 Sugar Carter is a 64 year old female with long history of smoki
[2020-07-07] VITALS (11 sets, daily range): BP systolic 98–112; BP diastolic 60–68; PULSE 75–125; RESP 16–22; TEMP 36.5–36.7; O2SAT 87–100
[2020-07-07 05:16] LABS: Hematocrit 36.9 % (37.0-47.0); Hemoglobin 12.2 g/dL (12.0-15.0); Mean Corpuscular HGB Conc 33.1 g/dl (32-36); Mean Corpuscular Hemoglobin 33.2 pg (26-34); Mean Corpuscular Volume 100.5 fl (80-100); Mean Platelet Volume 9.1 fl (7.4-10.4); Platelet Count Result 234 k/mm3 (150-375); Red Blood Count 3.67 M/mm3 (4.2-5.4); Red Cell Distribution Width 11.8 % (11.5-14.5); White Blood Count 4.6 K/mm3 (4.5-10.0)
[2020-07-07 05:33] LABS: Alanine Aminotransferase 24 U/L (4-35); Albumin Level 2.9 g/dL (3.5-5.1); Alkaline Phosphatase 68 U/L (38-126); Anion Gap 2 mmol/L (8-16); Aspartate Amino Transferase 29 U/L (14-36); Bilirubin,Total 0.5 mg/dL (0.2-1.3); Blood Urea Nitrogen 10 mg/dL (7-17); Calcium 8.1 mg/dL (8.4-10.2); Carbon Dioxide 35 mmol/L (22-30); Chloride 100 mmol/L (98-107); Estimated CRCL calculation 49 ml/min; Estimated Glomerular Filt Rate > 60; Glucose 104 mg/dL (65-105); Magnesium 1.8 mg/dL (1.6-2.3); Potassium 3.9 mmol/L (3.4-5.0); Sodium 137 mmol/L (137-145)
[2020-07-07] MEDS: ASPIRIN 81 MG ENTERIC TABLET PO (08:58)
[2020-07-07] MEDS: FOLIC ACID 1 MG TABLET PO (08:58)
[2020-07-07] MEDS: CHOLECALCIFEROL 400 UNITS TABLET (VIT D) PO (08:58)
[2020-07-07] MEDS: ATORVASTATIN 40 MG TABLET PO (08:58)
[2020-07-07] MEDS: BENZOCAINE/MENTHOL (*BKC) 18 EA LOZENGE 1 LOZENGE PO (09:02)
[2020-07-07] MEDS: ALBUTEROL SULFATE NEB 2.5 MG/0.5 ML INH INHALATION ×2 (09:28→14:28)
[2020-07-07] MEDS: IPRATROPIUM BR 0.02% INH SOLN 0.5 MG/2.5 ML VIAL INHALATION ×2 (09:28→14:28)
--- NOTE | 2020-07-07 11:25 | PM.PNPUL ---
Progress Note: A&P Assessment and Plan (1) COPD (chronic obstructive pulmonary disease): Code(s): J44.9 - Chronic obstructive pulmonary disease, unspecified Status: Acute Assessment and Plan: 2/ patient with a history of tobacco use and severe emphysema noted on a CT scan from 10 years ago. Currently patient has severe panlobular emphysema on her CT scan of the chest and right pneumothorax which is resolved after chest tube placement. Currently patient denies any wheezing, fever, chills, change in sputum, hemoptysis. I do not believe she has a COPD exacerbation or pneumonia at this time. Patient states that her nebulizers have helped her in the past and I will initiate albuterol and ipratropium nebulizers Q 6 hours while awake. I do not see a need for systemic or inhaled corticosteroids at this time. I do not see a need for antibiotics at this time. I will send alpha 1 antitrypsin as she has extensive upper and lower lobe panlobular emphysema. 2 No wheezes, tolerating duonebs for now, continue for now and also continue on discharge. 2 No wheezes, on duonebs. Some SOB on 3 L NC. 07/05 No wheezes on duonebs, continue 3 L for now. 2 No wheezes on duonebs, continue 3 L for now. From m pulmonary perspective she is stable for discharge on: Duo nebs Q 6 while awake or anoro Ellipta 62.5/25 1 puff Q day or stiolto respimat 2.5/2.5 1 puff BID Oxygen per home O2 assessment today Follow up in pulmonary clinic in 2-3 weeks. She should have an out patient overnight oximetry. 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 Possibly right is increased now but in setting of pneumothorax. Will need CT scan in 3 months after pneumothorax resolved to better assess for possible cancer. Will follow with you. (2) Pneumothorax on right: Code(s): J93.9 - Pneumothorax, unspecified Status: Acute Assessment and Plan: General surgery has been consulted to manage her chest tube. 2/ Patient with a secondary pneumothorax from her panlobular emphysema. Etiology of the pneumothorax is likely a ruptured subpleural bleb. Patient would benefit from a definitive procedure so as to prevent further pneumothoraces and will eventually need referral to thoracic surgery or interventional pulmonary. Currently there is no air leak on 20 cm water pressure. Agree with supplemental oxygen at this time. 2/ CXR this morning on suction without pneumothorax. on water seal now without air leak. Repeat CXR on water deal with no pneumothorax and chest tube removed at 12:00 and repeat CXR with pneumothorax. 07/04 CXR with small right pneumothorax. Supplemental oxygen to help resorb. Repeat CXR in morning. If pneumothorax persists will need transfer to facility with thoracic surgery for definitive procedure. SOB later in day and CXR without pneumothorax. 07/05 CXR with small right apical pneumothorax (reviewed with radiologist) which remains small and similar to yesterday morning film. Some variation likely due from angle and or inspiratory phase. Overall no change. From my perspective she is stable for cardiac cath on 07/06. 07/06 CXR no pneumothorax. Normal coronaries on cath. 07/07 Once she is stable medically from her NSTEMI, will need outpatient referral to thoracic surgery regarding procedure to prevent future secondary pneumothorac. (3) Elevated troponin: Code(s): R77.8 - Other specified abnormalities of plasma proteins Status: Acute Assessment and Plan: Summary 1. Complete two-dimensional, color flow and Doppler transthoracic echocardiogram is performed. 2. Left ventricular systolic function is severely reduced, estimated at 30% with dyskinetic apex, akinetic apical septal, apical lateral, apical anterior, mid anterior, anteroseptal, and anterolateral swartz with relative sparing at the bases. Findings are suggestive of Takotsubo cardiomyopathy vs multivess
--- NOTE | 2020-07-07 14:05 | PCRCNOTE ---
Home oxygen evaluation completed. Patient requires 1 lpm with activity only. Patient had no DME preference. Arrangements being made with [facility]. .
--- NOTE | 2020-07-07 14:07 | HOMEO2EVAL ---
Home Oxygen Evaluation RC: Home Oxygen (O2) Evaluation Start: 07/07/20 08:00 Freq: ONCE Status: Active Protocol: RPE Activity Type Activity Date Activity User E-Sign Co-Sign Detail Recorded Client Recorded Date Recorded By Document 07/07/20 11:45 [email or web address] [email or web address] 07/07/20 14:01 JANAK Document 07/07/20 11:50 JANAK [email or web address] 07/07/20 14:01 JANAK Document 07/07/20 11:53 [email or web address] [email or web address] 07/07/20 14:01 JANAK Document 07/07/20 12:00 JANAK [email or web address] 07/07/20 14:01 JANAK 07/07/20 07/07/20 07/07/20 11:45 11:50 11:53 Home O2 Evaluation Test Phase Resting Exercise Exercise Oxygen Delivery Room Air Room Air Nasal Cannula Oxygen Flow Rate (L/min) 1 Pulse Oximetry (90-100 %) 93 87 L 91 Pulse Rate (60-100 beats/min) 100 123 H 125 H Home Oxygen Evaluation Comments Treatment Charges O2 Evaluation - Inpatient 07/07/20 12:00 Home O2 Evaluation Test Phase Resting Oxygen Delivery Room Air Oxygen Flow Rate (L/min) Pulse Oximetry (90-100 %) 94 Pulse Rate (60-100 beats/min) 99 Home Oxygen Evaluation Comments PT REQUIRES 1 LITER HOME O2 WITH EXERTION Treatment Charges
--- NOTE | 2020-07-28 16:34 | PM.DS ---
DS: Admitting Diagnosis Admitting Diagnosis Admitting Diagnosis: Chief Complaint: Shortness of breath DS: Discharge Diagnosis Discharge Diagnosis (1) Acute hypoxemic respiratory failure: Code(s): J96.01 - Acute respiratory failure with hypoxia Status: Acute Assessment and Plan: 07/06/20 16:54 Sugar Carter is a 64 year old female with long history of smoking and has not seen a primary care physician in a long time and does not have a ambulatory care, patient presented emergency department with a complaint shortness of breath patient states at baseline she is short of breath with exertion however her symptoms were progressive getting worse EMS was called and patient was desaturating 80% on room air, patient was placed on non-rebreather mask a brought to the emergency depart, patient had CTA of the chest did not show pulmonary emboli but patient did have a small to moderate size pneumothorax on right side, chest tube was placed in the emergency department and currently on suction, seen by surgery team plan is to continue the chest tube, repeat a chest x-ray in the morning further recommendation to follow, will consult ambulatory care for further recommendation. Patient with history of hyperlipidemia patient states at 1 time she was prescribed statin but did not take it. 07/03 patient had a chest x-ray this morning did not show any pneumothorax seen by surgery service, placed on water seal, repeat CXR in the afternoon did not any pneumothorax, patient remains clinically stable, does complaint of pain in her chest along the chest but denies any shortness of breath, fever or chills, patient has elevated tropes, patient is seen by Cardiology and further recommendation to follow. 07/04 patient still complains of chest pain and shortness of breath repeat chest x-ray this morning showed small pneumothorax seen by ambulatory care increase the supplemental oxygen will monitor overnight if there is no improvement patient need to be transferred to tertiary care for thoracic surgeon, patient seen by Cardiology started the patient on Lovenox for non STEMI, discontinue beta-paul, continue aspirin, statin, and rampril, remains clinically stable will have a cardiac catheterization on Wednesday 07/05 today patient states feeling much better not a short of breath patient had a chest x-ray this morning which showed patient has a small apical pneumothorax seen by pulmonology suggested there is no significant change from chest x-ray done on 07/04 and patient is clinically stable does not need further workup, patient is clinically stable to have a cardiac catheterization tomorrow, will follow-up and further recommendation to follow 07/06 today patient had a cardiac catheterization which was essentially normal without any coronary artery disease patient with significant systolic dysfunction 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 the road mechanic suspect most likely secondary to Takotsubo cardiomyopathy, 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 ambulatory care patient remains clinically stable no new pneumothorax, if remains clinically stable will do the home O2 wall tomorrow and discharge the patient home (2) Acute exacerbation of chronic obstructive pulmonary disease: Code(s): J44.1 - Chronic obstructive pulmonary disease with (acute) exacerbation Status: Acute Assessment and Plan: Patient with long history of smoking now with severe COPD will consult ambulatory care further recommendation (3) Elevated troponin: Code(s): R77.8 - Other specified abnormalities of plasma proteins Status: Acute Assessment and Plan: Patient with elevated tropes most likely demand ischemia secondary to hypoxia and pneumothorax however will consult cardiology for further recommendation and will do the cardiac echo. (4) Pneumothorax on right: Code(s): J93.9 - Pneumothorax, unspecified Status: Acute Assessment and Plan: Now with chest tube seen by surgery team further recommendation to follow
== END 2020-07-07 16:10 | disposition home or self-care (01) | DRG 189 ==
LOC: ANHED 10:29 → ANHIMU 14:12
PROVIDERS: Emergency Medicine; Internal Medicine Cardiovascular Disease; Internal Medicine Pulmonary Disease; Physician Assistant; Specialist; Admitting Provider Family Medicine; Emergency Provider Emergency Medicine; Visit Provider Family Medicine
PROC: 4A023N7 Measurement of Cardiac Sampling and Pressure, Left Heart, Percutaneous Approach (ICD-10-PCS; CPT 93452; principal; 2020-07-06 11:30)
DX: J96.01 Acute respiratory failure with hypoxia (principal); I50.23 Acute on chronic systolic (congestive) heart failure; I51.81 Takotsubo syndrome; J93.9 Pneumothorax, unspecified; I24.8 Other forms of acute ischemic heart disease; J43.1 Panlobular emphysema; R77.8 Other specified abnormalities of plasma proteins; E78.5 Hyperlipidemia, unspecified; Z79.899 Other long term (current) drug therapy; Z85.048 Personal history of other malignant neoplasm of rectum, rectosigmoid junction, and anus; Z87.891 Personal history of nicotine dependence
CPT/HCPCS: 36415; 36600; 71045; 71275; 80048; 80053; 80061; 82104; 82375; 82607; 82746; 82805; 83050; 83735; 84484; 85025; 85027; 85380; 85610; 85730; 93005; 93306; 93458; 94002; 94618; 94640; 96361; 96374; 96375; 96376; 97161; 97165; 99291; A9270; C1729; C1887; C1894; J0131; J1644; J1650; J1940; J2250; J2270; J2405; J3010; J7030; J7040; J7120; Q9967